=== PATIENT | male | born 1940 | race Caucasian/White ===

== ENCOUNTER → 2019-11-24 08:00 | Outpatient (BNVA) | payer MEDICARE, OTHER, SELFPAY | PROVIDERS: Family Provider Family Medicine; PCP Family Medicine; Referring Provider Family Medicine; Visit Provider Family Medicine | DX: Z00.00 Encounter for general adult medical examination without abnormal findings (principal); I10 Essential (primary) hypertension; Z85.46 Personal history of malignant neoplasm of prostate; E11.9 Type 2 diabetes mellitus without complications; N52.9 Male erectile dysfunction, unspecified | CPT/HCPCS: 80048; 83036; G0103 ==

== ENCOUNTER → 2020-05-05 11:58 | Outpatient (BNVA) | payer MEDICARE, OTHER, SELFPAY | PROVIDERS: Family Provider Family Medicine; PCP Family Medicine; Visit Provider Family Medicine | DX: E11.9 Type 2 diabetes mellitus without complications (principal); N10 Acute pyelonephritis | CPT/HCPCS: 36416; 80053; 81000; 82962; 83036; 85025; 87086 ==

== ENCOUNTER 2020-05-22 18:52 | Emergency (ER) | payer MEDICARE, OTHER, SELFPAY ==
--- NOTE | 2020-05-22 18:52 | XRR_ITS ---
PROCEDURE INFORMATION: Exam: XR Abdomen, 1 View Exam date and time: 05/22/2020 6:53 PM Age: 79 years old Clinical indication: Symptoms: Constipation x 2; Prior surgery TECHNIQUE: Imaging protocol: XR of the abdomen. Views: Frontal supine view of the abdomen. 1 View. COMPARISON: CR XR KUB [id number] 08/31/2016 8:33 AM FINDINGS: Gastrointestinal tract: Bowel gas pattern is unremarkable. There is a large amount of feces within the rectal region suggesting possible fecal impaction. Correlation with clinical findings is suggested. Intraperitoneal space: There are postsurgical changes in the pelvis with multiple surgical clips not changed from previous. Bones/joints: Unremarkable. Soft tissues: No urinary tract calculi are identified. XR/XR KUB [id number] IMPRESSION: Possible fecal impaction.
[2020-05-22 19:07] VITALS: BP 137/81; PULSE 103; RESP 18; TEMP 36.8; O2SAT 97; BMI 26.2
[2020-05-22 19:31] VITALS: BP 135/86; PULSE 102; RESP 18; O2SAT 96
[2020-05-22 20:03] LABS: Basophils # 0.1 10^3/uL (0.0-0.1); Basophils % 0.8 %; Eosinophils # 0.1 10^3/uL (0.0-0.8); Eosinophils % 0.8 %; Hematocrit 37.6 % (42.0-52.0); Lymphocytes % 45.2 %; Mean Corpuscular HGB Conc 31.9 g/dL (30.0-36.0); Mean Corpuscular Hemoglobin 32.2 pg (28.0-34.0); Mean Corpuscular Volume 100.8 fL (80-94); Mean Platelet Volume 10.3 fL (7.4-10.4); Monocytes # 0.6 10^3/uL (0.2-0.9); Neutrophils # 2.86 10^3/uL (1.8-7.7); Neutrophils % 43.7 %; Nucleated Red Blood Cells % 0 %; Platelet Count 195 10^3/cmm (130-400); Red Blood Count 3.73 10^6/uL (4.1-5.3); Red Cell Distribution Width 13.2 % (12.1-15.1); White Blood Count 6.5 10^3/uL (4.0-10.0)
[2020-05-22 20:25] LABS: Alanine Aminotransferase 17 U/L (0-41); Albumin Level 3.4 g/dL (3.5-5.2); Alkaline Phosphatase 56 IU/L (40-130); Anion Gap 16.4 (5-19); Aspartate Amino Transferase 12 U/L (0-40); Blood Urea Nitrogen 22 mg/dL (8-23); Calcium 9.1 mg/dL (8.5-10.5); Carbon Dioxide 20 mmol/L (22-29); Chloride 106 mmol/L (98-107); Globulin 3.4 g/dL (1.3-4.6); Glucose 207 mg/dL (65-115); Osmolality Calculated 289 mOsm/kg (285-295); Potassium 4.4 mmol/L (3.5-5.1); Sodium 138 mmol/L (136-145); Total Bilirubin 0.3 mg/dL (0.15-1.2); Total Protein 6.8 g/dL (6.6-8.7)
[2020-05-22] MEDS: mineral oil ENEMA 133 mL PR (21:27)
--- NOTE | 2020-05-22 21:27 | PC.NURSE ---
Pt produced a large stool at this time.
[2020-05-22 22:00] VITALS: BP 100/71; PULSE 106; RESP 18; O2SAT 97
--- NOTE | 2020-05-22 23:10 | W.ED.ABDPA2 ---
HPI - Abdominal Pain General: Chief Complaint: Abdominal Pain Stated Complaint: constipated Time Seen by Provider: 05/22/20 19:20 History of Present Illness: HPI narrative: 79-year-old male he presents with a feeling of bloating, and mild belly pain. He feels like he needs to have a bowel movement, but cannot. He says he has the urge but cannot seem to complete. He feels it in his vault. No vomiting. No encopresis. No fever. He is tried MiraLAX at home. MD elicited complaint: abdominal pain Pertinent past history: constipation Onset (ago): day(s) Pain Consistency: constant Location: Diffuse Severity: mild Quality: aching Radiation: none Migration to: no migration Relieving factors: nothing Associated Symptoms: Reports bloating and constipation; Denies belching, diarrhea, dysuria, fever(s), hematuria, hematemesis and vomiting Review of Systems Const: Denies: fever(s) Eyes: Denies: change in vision ENMT: Denies: swelling of lips/tongue, bleeding gums, dental pain, change in hearing, epistaxis, post nasal drip or sinus pain Card: Denies: chest pain, palpitations or irregular heart rhythm Resp: Denies: dyspnea, productive cough, non-productive cough or wheezing GI: Reports: constipation and bloating; Denies: vomiting, hematemesis, diarrhea or belching : Denies: difficulty urinating, dysuria or hematuria Skin/Breast: Denies: rash Neuro: Denies: headache(s), dizziness or vertigo Psych: Denies: anxiety PFSH ED PFSH: Medical History Diabetes Hypertension Surgical History History of prostate surgery Social History Smoking and tobacco status: former smoker Alcohol intake: never Physical Exam Const: GENERAL APPEARANCE: well developed ORIENTATION/CONSCIOUSNESS: Yes oriented to person, Yes oriented to place and Yes oriented to time HENMT: COMMON NORMALS: normocephalic, external ears normal and Normal external nose present HEAD & SCALP: normocephalic FACE & SINUS: normal facial exam NOSE: Normal external nose present and No nasal discharge present EXTERNAL EAR: Yes external ears normal MOUTH: tongue normal Eye: COMMON NORMALS: Equal, round and reactive pupils present, EOMs intact bilaterally and conjunctivae normal EYELID: eyelids normal CONJUNCTIVA: Yes conjunctivae normal PUPIL: Yes Equal, round and reactive pupils present Neck/C-Spine: GENERAL: No tracheal deviation Chest: COMMONS NORMALS: normal inspection of the chest CHEST: No tenderness Resp: COMMON NORMALS: clear to auscultation bilaterally EFFORT & INSPECTION: No tachypneic, No respiratory distress, No retractions, No uses accessory muscles and No tracheal deviation AUSCULTATION: clear to auscultation bilaterally, no rhonchi, no wheezes and lung sounds not diminished Cardio: COMMON NORMALS: regular rate and regular rhythm RATE: regular rate RHYTHM: regular rhythm HEART SOUNDS: no murmurs PERIPHERAL PULSES: radial pulses present GI: INSPECTION: No abdominal distension AUSCULTATION: No Hyperactive bowel sounds present and No Hypoactive bowel sounds present PALPATION: No Guarding due to palpation present (GI) and No Rigid due to palpation PERCUSSION: no dullness to percussion and no tympanic to percussion Neuro: SENSORIUM/ORIENTATION: Yes oriented to person, Yes oriented to place and Yes oriented to time Psych: COMMON NORMALS: mental status grossly normal Skin: COMMON NORMALS: no rashes or lesions noted GENERAL SKIN EXAM: no rashes or lesions noted Course Vital Signs: Vital signs: Vital Signs Temperature 98.2 F 05/22/20 19:07 Pulse Rate 106 H 05/22/20 22:00 Respiratory Rate 18 05/22/20 22:00 Blood Pressure 100/71 05/22/20 22:00 Pulse Oximetry 97 05/22/20 22:00 MDM - Abdominal Pain MDM Narrative: Medical decision making narrative: Patient was given a Fleet and mineral oil enema here in the ER with good results. He feels much better. He will be discharged home. He will continue his MiraLAX Lab Data: Labs: Lab Results 05/22/20 05/22/20 Range/Units 19:58 19:58 WBC 6.5 (4.0-10.0) 10^3/ uL RBC 3.73 L (4.1-5.3) 10^6/u L Hgb 12.0 (11.7-16.6) g/dL Hct 37.6 L (42.0-52.0) % MCV 100.8 H (80-94) fL MCH 32.2 (28.0-34.0) pg MCHC 31.9 (30.0-36.0) g/dL RDW 13.2 (12.1-15.1) % Plt Count 195 (130-400) 10^3/c mm MPV 10.3 (7.4-10.4) fL Neut % (Auto) 43.7 % Lymph % (Auto) 45.2 % [place] % (Auto) 9.0 % Eos % (Auto) 0.8 % Baso % (Auto) 0.8 % Neut # (Auto) 2.86 (1.8-7.7) 10^3/u L Lymph # (Auto) 3.0 (0.8-4.8) 10^3/u L [place] # (Auto) 0.6 (0.2-0.9) 10^3/u L Eos # (Auto) 0.1 (0.0-0.8) 10^3/u L Baso # (Auto) 0.1 (0.0-0.1) 10^3/u L Nucleated RBC % (a uto) 0 % Nucleated RBCs # 0.0 /100WBC Sodium 138 (136-145) mmol/L Potassium 4.4 (3.5-5.1) mmol/L Chloride 106 (98-107) mmol/L Carbon Dioxide 20 L (22-29) mmol/L Anion Gap 16.4 (5-19) BUN 22 (8-23) mg/dL Creatinine 1.2 (0.7-1.2) mg/dL Glucose 207 H (65-115) mg/dL Calculated Osmolal ity 289 (285-295) mOsm/k g Calcium 9.1 (8.5-10.5) mg/dL Total Bilirubin 0.3 (0.15-1.2) mg/dL AST 12 (0-40) U/L ALT 17 (0-41) U/L Alkaline Phosphata se 56 (40-130) IU/L Total Protein 6.8 (6.6-8.7) g/dL Albumin 3.4 L (3.5-5.2) g/dL Globulin 3.4 (1.3-4.6) g/dL Discharge Plan Discharge Patient Disposition: Home, Self-Care Condition: Stable Prescriptions: No Action dorzolamide-timolol [Cosopt] 22.3-6.8 mg/mL drops 1 drop ophthalmic (eye) BID RF: 0 lisinopril 5 mg tablet 5 mg PO ONCE RF: 0 Januvia 100 mg tablet 100 mg PO ONCE RF: 0 sildenafil [Viagra] 100 mg tablet 100 mg PO DAILY PRN (Reason: sexual activity) Qty: 10 RF: 0 ciprofloxacin HCl [Cipro] 500 mg tablet 500 mg PO BID Qty: 14 RF: 0 glipizide 5 mg tablet 5 mg PO DAILY Qty: 30 RF: 1 metformin 500 mg tablet 500 mg PO BID Qty: 180 RF: 3 Discharge Orders: Discharge Order (Routine); Ordered 05/22/20 Ordered By: Arie Quach Referrals: Param Goodwin MD [Primary Care Provider] - 4-7 days Discharge Diet: Advance as tolerated Discharge Activity: Increase activity as tolerated Patient Instructions: Constipation (ED) Activity Restrictions/Additional Instructions: Continue your MiraLAX twice daily until stools are good and soft. As needed following. Return for any fever, worsening belly pain, blood in the stool, other concerning symptoms. Discharge Date/Time: 05/22/20 22:03 Coding Level of Care Code ED [employer] Lab Technician for Oscar Hernadez
== END 2020-05-22 22:03 | disposition home or self-care (01) ==
PROVIDERS: Emergency Provider Emergency Medicine; PCP Family Medicine
DX: K59.00 Constipation, unspecified (principal); E11.9 Type 2 diabetes mellitus without complications; I10 Essential (primary) hypertension; Z87.891 Personal history of nicotine dependence
CPT/HCPCS: 12345; 74018; 80053; 85025; 99282; 99283

== ENCOUNTER → 2021-04-18 10:06 | Outpatient (BNVA) | payer MEDICARE, SELFPAY | PROVIDERS: PCP Family Medicine; Visit Provider Family Medicine | DX: E11.9 Type 2 diabetes mellitus without complications (principal); I10 Essential (primary) hypertension; Z98.890 Other specified postprocedural states; M72.0 Palmar fascial fibromatosis [Dupuytren] | CPT/HCPCS: 80053; 83036; 85025; G0103 ==

== ENCOUNTER → 2022-06-12 10:14 | Outpatient (BNVA) | payer MEDICARE, SELFPAY | PROVIDERS: PCP Family Medicine; Visit Provider Family Medicine | DX: E11.9 Type 2 diabetes mellitus without complications (principal); Z00.00 Encounter for general adult medical examination without abnormal findings; I10 Essential (primary) hypertension; L82.1 Other seborrheic keratosis | CPT/HCPCS: 80053; 83036 ==

== ENCOUNTER → 2022-10-20 12:37 | Outpatient (BNVA) | payer MEDICARE, SELFPAY | PROVIDERS: PCP Family Medicine; Visit Provider Family Medicine | DX: L01.02 Bockhart's impetigo (principal) | CPT/HCPCS: 87070; 87077; 87184; 87205 ==

== ENCOUNTER → 2023-05-07 10:54 | Outpatient (BNVA) | payer MEDICARE, SELFPAY | PROVIDERS: PCP Family Medicine; Visit Provider Family Medicine | DX: E11.9 Type 2 diabetes mellitus without complications (principal); I10 Essential (primary) hypertension | CPT/HCPCS: 80053; 83036; 85025 ==

== ENCOUNTER → 2023-09-11 12:17 | Outpatient (BNVA) | payer MEDICARE, SELFPAY | PROVIDERS: PCP Family Medicine; Visit Provider Family Medicine | DX: E11.9 Type 2 diabetes mellitus without complications (principal) | CPT/HCPCS: 80053; 83036; 85025 ==

== ENCOUNTER → 2023-09-17 13:44 | Outpatient (BNVA) | payer MEDICARE, SELFPAY | PROVIDERS: PCP Family Medicine; Visit Provider Otolaryngology | DX: C44.211 Basal cell carcinoma of skin of unspecified ear and external auricular canal (principal) | CPT/HCPCS: 99203 ==

== ENCOUNTER → 2023-10-02 13:17 | Outpatient (BNVA) | payer MEDICARE, SELFPAY | PROVIDERS: PCP Family Medicine; Referring Provider Family Medicine; Visit Provider Dermatology | DX: L82.1 Other seborrheic keratosis (principal); L57.0 Actinic keratosis; D48.5 Neoplasm of uncertain behavior of skin; L81.4 Other melanin hyperpigmentation; D69.2 Other nonthrombocytopenic purpura | CPT/HCPCS: 11102; 17000; 69100; 99203 ==

== ENCOUNTER 2023-10-25 12:55 | Outpatient (CLI) | payer MEDICARE, SELFPAY ==
--- NOTE | 2023-10-25 14:00 | CT_ITS ---
WS: [id number] CT scan of the abdomen and pelvis with Oral and IV contrast. Additional two-dimensional coronal and s agittal reconstruction was performed. 10/25/2023 Clinical Data: progressive discomfort abnormal bowel act/constip x 12 d Comparison: CT abdomen pelvis, 04/13/2010 DLP: 745.[address] scans at [facility] use at least one of these dose optimization techniques: automated e xposure control; mA and/or kV adjustment per patient size (includes targeted exams where dose is matc hed to clinical indication); or iterative reconstruction. Findings: The lower lungs show no nodules, masses or effusions. The liver, spleen, adrenal glands and pancreas are normal. There are numerous gallstones in the gallb ladder. The kidneys show equal bilateral contrast excretion with no cyst or masses in the right kidney. The l eft kidney shows a 5.9 cm simple cyst. There is also a central 1.2 cm renal calculus with dilatation of the left renal pelvis and proximal left ureter. No distinct left ureteral stone is seen. There is a small inferior left renal calculus. The abdominal aorta is normal in size. No appendicitis or diverticulitis is seen. Oral contrast is in the stomach and small bowel and there is no bowel dilatation. No abscess, adenopathy, ascites, mass, obstruction or free air is seen. The bladder is unremarkable. The prostate has been removed. No inguinal hernia is seen. The bones of the lower thorax, lumbar spine, pelvis, and hips show only minimal osteoarthritis of the lower thoracic and lumbar vertebral bodies. Impression: 1. Central 1.2 cm left renal calculus with dilatation of the left renal pelvis and proximal left uret er. 2. Cholelithiasis.
[2023-10-25] MEDS: iohexol 350 mg/mL 500 mL Btl (per mL) IV (14:12)
[2023-10-25] MEDS: iohexol 350 mg/mL 500 mL Btl (per mL) PO (14:19)
== END 2023-10-25 12:56 | disposition home or self-care (01) ==
LOC: RAD 12:56
PROVIDERS: PCP Family Medicine; Visit Provider Family Medicine
DX: K56.600 Partial intestinal obstruction, unspecified as to cause (principal); N20.0 Calculus of kidney; K59.00 Constipation, unspecified; K80.20 Calculus of gallbladder without cholecystitis without obstruction; N28.82 Megaloureter
CPT/HCPCS: 74177; Q9967

== ENCOUNTER → 2023-11-13 08:02 | Outpatient (BNVA) | payer MEDICARE, SELFPAY | PROVIDERS: PCP Family Medicine; Visit Provider Dermatology | DX: C44.319 Basal cell carcinoma of skin of other parts of face (principal); C44.212 Basal cell carcinoma of skin of right ear and external auricular canal | CPT/HCPCS: 13132; 15260; 17311 ==

== ENCOUNTER → 2023-11-23 08:14 | Outpatient (BNVA) | payer MEDICARE, SELFPAY | PROVIDERS: PCP Family Medicine; Visit Provider Dermatology | DX: Z48.02 Encounter for removal of sutures (principal) | CPT/HCPCS: 99212 ==

== ENCOUNTER → 2023-12-11 13:39 | Outpatient (BNVA) | payer MEDICARE, SELFPAY | PROVIDERS: PCP Family Medicine; Visit Provider Dermatology | DX: Z48.817 Encounter for surgical aftercare following surgery on the skin and subcutaneous tissue (principal); L57.0 Actinic keratosis; L81.4 Other melanin hyperpigmentation; L82.1 Other seborrheic keratosis; D36.11 Benign neoplasm of peripheral nerves and autonomic nervous system of face, head, and neck; L72.0 Epidermal cyst | CPT/HCPCS: 17000; 99213 ==

== ENCOUNTER → 2024-04-30 12:39 | Outpatient (BNVA) | payer MEDICARE, SELFPAY | PROVIDERS: PCP Family Medicine; Visit Provider Family Medicine | DX: I10 Essential (primary) hypertension (principal); E11.9 Type 2 diabetes mellitus without complications; R79.89 Other specified abnormal findings of blood chemistry; C44.212 Basal cell carcinoma of skin of right ear and external auricular canal; N20.0 Calculus of kidney | CPT/HCPCS: 80053; 82310; 83036; 83970; 84403; 85025 ==

== ENCOUNTER → 2024-10-14 13:26 | Outpatient (BNVA) | payer MEDICARE, SELFPAY | PROVIDERS: PCP Family Medicine; Visit Provider Dermatology | DX: L82.1 Other seborrheic keratosis (principal); D36.14 Benign neoplasm of peripheral nerves and autonomic nervous system of thorax; L72.0 Epidermal cyst; D22.5 Melanocytic nevi of trunk; D48.5 Neoplasm of uncertain behavior of skin; L57.0 Actinic keratosis | CPT/HCPCS: 11102; 17000; 99213 ==

== ENCOUNTER → 2024-10-20 10:45 | Outpatient (BNVA) | payer MEDICARE, SELFPAY | PROVIDERS: PCP Family Medicine; Visit Provider Family Medicine | DX: Z98.890 Other specified postprocedural states (principal); Z85.46 Personal history of malignant neoplasm of prostate; Z87.442 Personal history of urinary calculi; E11.9 Type 2 diabetes mellitus without complications; N20.0 Calculus of kidney; Z12.5 Encounter for screening for malignant neoplasm of prostate | CPT/HCPCS: 80053; 82310; 83036; 83970; G0103 ==

== ENCOUNTER → 2024-11-19 08:41 | Outpatient (BNVA) | payer MEDICARE, SELFPAY | PROVIDERS: PCP Family Medicine; Visit Provider Dermatology | DX: C44.319 Basal cell carcinoma of skin of other parts of face (principal) | CPT/HCPCS: 14041; 17311 ==

== ENCOUNTER → 2025-02-19 09:52 | Outpatient (BNVA) | payer MEDICARE, SELFPAY | PROVIDERS: PCP Family Medicine; Visit Provider Nurse Practitioner Family | DX: L57.8 Other skin changes due to chronic exposure to nonionizing radiation (principal); L81.4 Other melanin hyperpigmentation; L21.8 Other seborrheic dermatitis; B07.8 Other viral warts; L29.89 Other pruritus | CPT/HCPCS: 17000; 99213 ==

== ENCOUNTER → 2025-04-14 11:08 | Outpatient (BNVA) | payer MEDICARE, SELFPAY | PROVIDERS: PCP Family Medicine; Visit Provider Nurse Practitioner Family | DX: L82.1 Other seborrheic keratosis (principal); L72.0 Epidermal cyst; Z08 Encounter for follow-up examination after completed treatment for malignant neoplasm; Z85.828 Personal history of other malignant neoplasm of skin; L57.0 Actinic keratosis | CPT/HCPCS: 17000; 99213 ==

== ENCOUNTER → 2025-05-04 10:34 | Outpatient (BNVA) | payer MEDICARE, SELFPAY | PROVIDERS: PCP Family Medicine; Visit Provider Family Medicine | DX: E11.9 Type 2 diabetes mellitus without complications (principal); I10 Essential (primary) hypertension | CPT/HCPCS: 80053; 83036; 85025 ==

== ENCOUNTER → 2025-05-13 09:22 | Outpatient (BNVA) | payer MEDICARE, SELFPAY | PROVIDERS: PCP Family Medicine; Visit Provider Family Medicine | DX: D70.9 Neutropenia, unspecified (principal) | CPT/HCPCS: 85007; 85027 ==

== ENCOUNTER → 2025-05-19 08:54 | Outpatient (BNVA) | payer MEDICARE, SELFPAY | PROVIDERS: PCP Family Medicine; Visit Provider Family Medicine | DX: D70.9 Neutropenia, unspecified (principal) | CPT/HCPCS: 80053; 83615; 85025 ==

== ENCOUNTER 2025-05-29 13:26 | Observation (INO) | payer MEDICARE, SELFPAY ==
--- OUTSIDE RECORDS SUMMARY | 2025-05-29 13:33 | XMS_ITS | Patient Health Record ---
Author Organization [facility] [email or web address] Address [address] [facility] [place] [address] Care Team Providers Care Psychology Clinician Name Role Phone Param Goodwin Primary Care Provider MARGARITO Jackman Unavailable [phone] ARIEL KEANE Unavailable [phone] Allergies No Known Allergies Results Component Value Reference Range Notes Urinalysis, Routine Reviewed date:08/28/2024 10:34:27 AM Interpretation: Performing Lab: Notes/Report: Urine-Color yellow Appearance clear Glucose 1+ Bilirubin - Ketones - Specific [place] 1.020 Occult Blood - pH 6.0 Urine Protein - Urobilinogen,Semi-Qn - Nitrite, Urine - WBC Esterase - Urinalysis, Routine Reviewed date:10/31/2024 10:56:32 AM Interpretation: Performing Lab: Notes/Report: Urine-Color yellow Appearance clear Glucose 3+ Bilirubin - Ketones - Specific [place] 1.025 Occult Blood - pH 6.0 Urine Protein - Urobilinogen,Semi-Qn - Nitrite, Urine - WBC Esterase - Urinalysis Gross Exam - Uric Acid Reviewed date:07/11/2024 10:47:18 AM Interpretation: Performing Lab: Notes/Report: Uric Acid 8.3 3.5-7.2 MG/DL Testing perfor med at: [address] [place] [address] CLIA ID [id number] PTH Intact Reviewed date:07/11/2024 10:47:26 AM Interpretation: Performing Lab: Notes/Report: PTH Intact 127.4 18.4-88.0 pg/mL Performed on the Siemens AtellQello Solution IM Testing performed at: [address] [place] [address] CLIA ID [id number] Basic Metabolic Panel Reviewed date:07/11/2024 10:47:18 AM Interpretation: Performing Lab: Notes/Report: Testing performed at [facility], [address] [place] [address] [place] [address]. CLIA ID#: [id number] R-bhqymm-e-benzoquinone imine (NAPQI) is a metabolite of acetaminophen, NAPQI concentrations of apparoximately 10 mg/L correlation to toxic levels of acetaminophen demonstrates a greater than or equil to 10% change in results. NAPQI concentrations greater than this may lead to falsely depressed results for patient samples. Calculation performed from GFR calculator provided by the [employer]. Glomerular Filtration rate(GRF) is the best overall index of kidney function. Normal GFR varies according to age,sex, body size, and declines with age. The National [employer] recommends using the CKD-EPI Creatinine Equation(2020) to estimate GFR. Testing performed at: [address] [place] [address] CLIA ID [id number] Use of this assay is not recommended for patients undergoing treatment with phenindione, due to the potential for falsely depressed results. Sodium 140 136-145 MMOL/L Potassium 5.0 3.5-5.1 MMOL/L Chloride 110 98-107 MMOL/L CO2 23.0 20.0-31.0 MMOL/L Glucose Serum 147 71-110 MG/DL BUN 25 7-21 MG/DL Creat 1.25 .57-1.17 MG/DL GFR 56.3 Anion Gap 12 5-15 BUN/Creat Ratio 20.0 12.0-20.0 % Calcium 9.3 8.7-10.4 MG/DL Osmo Serum,Calculated 297 280-300 MOSM/KG Reason For Referral No Information Medications Medication SIG (Take, Route, Frequency, Duration) Notes Start Date End Date Status Januvia taking half dose Act nicole Latanoprost Active Dorzolamide HCl Acti ve glipiZIDE Active Lisinopril Active Potassium Citrate ER 10 MEQ (1080 MG) 2 tablets with meals Orally twice a day for 30 days 08/28/2024 Active metFORMIN HCl Active Social History Tobacco Use: Social History Observation Description Date Details (start date - stop date) Former Smoker NA - NA Tobacco Use/Smoking Question Answer Notes Tobacco use: former smoker How long has it been since you last smoked? > 10 years Problems Problem Type SNOMED Code ICD Code Onset Dates Problem Status W/U Status Risk Notes Problem Calculus of kidney (00188228) Calculus of kidney (N20.0) Active confirmed Problem Asymptomatic microscopic hematuria (8168905737443678 9) Asymptomatic microscopic hematuria (R31.21) Active confirmed Problem Hydroureter (73343760) Hydroureter on left (N13.4) Active confirmed Problem 70544006 Nephrolithiasis (N20.0) Active confirmed Problem Male hypogonadism (84844435) Hypogonadism in male (E29.1) Active confirmed Problem Hydronephrosis (26194946) Hydronephrosis of left kidney (N13.30) Active confirmed Problem History of malignant neoplasm of prostate (060332577) H/O prostate cancer (Z85.46) Active confirmed Problem 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, acquired, 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) Active confirmed Vital Signs Heart Rate 76 /min 08/28/2024 Temperature 97.9 degrees Fahrenheit 10/31/2024 Height-cm 177.8 cm 10/31/2024 Blood pressure diastolic 59 mm Hg 08/28/2024 Weight-kg 84.82 kg 10/31/2024 Height 70 in 10/31/2024 Blood pressure systolic 102 mm Hg 08/28/2024 Weight 187 lbs 10/31/2024 BMI 26.83 kg/m2 10/31/2024 Procedures Procedure Date Ordered Date Performed Result Body Sit e Bladder Scan 10/31/2024 10/31/2024 N/A Encounters Encounter Location Date Provider Diagnosis [email or web address] [address] [facility] [place] [address] 08/28/2024 MARGARITO CHAMBERS Nephrolithiasis N20. 0 ; Renal cyst, acquired, left N28.1 ; Asymptomatic microscopic hematuria R31.21 ; Hypogonadism in male E29.1 and H/O prostate cancer Z85.46 [facility] [address] [facility] [place] [address] 10/31/2024 ARIEL KEANE Nephrolithiasis N20. 0 ; Renal cyst, acquired, left N28.1 ; Asymptomatic microscopic hematuria R31.21 ; Hypogonadism in male E29.1 ; H/O prostate cancer Z85.46 and Encounter for follow-up examination after completed treatment for malignant neoplasm Z08 [facility], [facility] [address] [facility] [place] [address] 06/30/2024 MARGARITO KARIS [facility] [address] [facility] [place] [address] 06/30/2024 MARGARITO CHAMBERS [facility], [facility] [address] [facility] [place] [address] 07/03/2024 MARGARITO CHAMBERS H/O prostate cancer Z85.46 [facility] [address] [facility] [place] [address] 09/04/2024 MARGARITO CHAMBERS Assessments Encounter Date Diagnosis (ICD Code) Assessment Notes Treatment Notes Treatment Clinical Notes Section Notes 07/03/2024 H/O prostate cancer (ICD-10 - Z85.46) 10/31/2024 Nephrolithiasis (ICD-10 - N20.0) Pt without interval flank pain or stone passage. He had hyperkalemia with potassium citrate even at 10mEq daily dosing. Discontinue and start dietary citrate. Continue diet prevention as previously reviewed by Dr. Chambers. He does not want surveillance KUBs because his stones are uric acid and he wants to just notify us with any flank pain or hematuria. 10/31/2024 Renal cyst, acquired, left (ICD-10 - N28.1) 08/28/2024 Nephrolithiasis (ICD-10 - N20.0) 84 yo male with L renal cyst, bilateral renal stones and AMH. [employer]Link reviewed during consult. Stone preventive pamphlet given today. Potassium citrate 20mg BID daily, Rx sent today. Pt and pleased with plan of care. He will return in 2m with Forest Oshea APRN with BMP, UA/PVR. Return sooner with any concerns. Plan: -Stone preventive pamphlet given today - Rx Potassium citrate 20mg BID daily -RTC in 2 months with BMP,UA/PVR and see Liz Keane APRN I, Stormy Kapelski, Scribe, am scribing for, and in the presence of, Dr. Chambers. I, Dr. Margarito Chambers, personally performed the services prescribed in this documentation , as scribed by Angelique Pierre, in my presence, and it is both accurate and complete. 08/28/2024 Renal cyst, acquired, left (ICD-10 - N28.1) 84 yo male with L renal cyst, bilateral renal stones and AMH. [employer]oLink reviewed during consult. Stone preventive pamphlet given today. Potassium citrate 20mg BID daily, Rx sent today. Pt and pleased with plan of care. He will return in 2m with Forest Oshea APRN with BMP, UA/PVR. Return sooner with any concerns. Plan: -Stone preventive pamphlet given today - Rx Potassium citrate 20mg BID daily -RTC in 2 months with BMP,UA/PVR and see Liz Keane APRN I, Stormy Kapelski, Bart, am scribing for, and in the presence of, Dr. Chambers. I, Dr. Margarito Chambers, personally performed the services prescribed in this documentation , as scribed by Angelique Pierre, in my presence, and it is both accurate and complete. 10/31/2024 Asymptomatic microscopic hematuria (ICD-10 - R31.21) 10/31/2024 Hypogonadism in male (ICD-10 - E29.1) 08/28/2024 Asymptomatic microscopic hematuria (ICD-10 - R31.21) 84 yo male with L renal cyst, bilateral renal stones and AMH. [employer]oLink reviewed during consult. Stone preventive pamphlet given today. Potassium citrate 20mg BID daily, Rx sent today. Pt and pleased with plan of care. He will return in 2m with Forest Oshea APRN with BMP, UA/PVR. Return sooner with any concerns. Plan: -Stone preventive pamphlet given today - Rx Potassium citrate 20mg BID daily -RTC in 2 months with BMP,UA/PVR and see Liz Keane APRN I, Stormy Kapelski, Scribe, am scribing for, and in the presence of, Dr. Chambers. Angel Luis, Dr. Margarito Chambers, personally performed the services prescribed in this documentation , as scribed by Angelique Pierre, in my presence, and it is both accurate and complete. 08/28/2024 Hypogonadism in male (ICD-10 - E29.1) 84 yo male with L renal cyst, bilateral renal stones and AMH. [employer] reviewed during consult. Stone preventive pamphlet given today. Potassium citrate 20mg BID daily, Rx sent today. Pt and pleased with plan of care. He will return in 2m with Forest Oshea APRN with BMP, UA/PVR. Return sooner with any concerns. Plan: -Stone preventive pamphlet given today - Rx Potassium citrate 20mg BID daily -RTC in 2 months with BMP,UA/PVR and see Liz Keane APRN I, Stormy Kapelski, Scribe am scribing for, and in the presence of, Dr. Chambers. I, Dr. Margarito Chambers, personally performed the services prescribed in this documentation , as scribed by Angelique Pierre, in my presence, and it is both accurate and complete. 10/31/2024 H/O prostate cancer (ICD-10 - Z85.46) Pt's PSA is undetectable. He would like to continue yearly surveillance. RTC in 1 year with PSA. 10/31/2024 Encounter for follow-up examination after completed treatment for malignant neoplasm (ICD-10 - Z08) 08/28/2024 H/O prostate cancer (ICD-10 - Z85.46) 84 yo male with L renal cyst, bilateral renal stones and AMH. [employer] reviewed during consult. Stone preventive pamphlet given today. Potassium citrate 20mg BID daily, Rx sent today. Pt and pleased with plan of care. He will return in 2m with Forest Oshea APRN with BMP, UA/PVR. Return sooner with any concerns. Plan: -Stone preventive pamphlet given today - Rx Potassium citrate 20mg BID daily -RTC in 2 months with BMP,UA/PVR and see Liz Keane APRN I, Stormy Kapelski, Scribe am scribing for, and in the presence of, Dr. Chambers. I, Dr. Margarito Chambers, personally performed the services prescribed in this documentation , as scribed by Angelique Pierre, in my presence, and it is both accurate and complete. Plan Of Treatment Pending Test Test Name Order Date Uric Acid, Serum 02/11/2024 PTH, Intact 02/11/2024 Basic Metabolic Panel (8) [id number] 02/11/20 24 X ray : Kidneys, Ureters and Bladder ([facility] B) 12/20/2023 Renal Ultrasound MARIO [id number] 12/20/2023 Basic Metabolic Panel 08/28/2024 PSA-Diagnostic 07/03/2024 Next Appt Details Provider Name:ARIEL DEE NS, 11/02/2025 10:40:00 AM, [address] [place], [address], Insurance Providers Payer Name Payer Address Payer Phone Subscriber Number Group Number Insured Name Patient Relationship to Insured Coverage Start Date Coverage End Date [facility] Medicare Advantage PPO [address] [address] [place], [place] [id number] Alex Navas Self - patient is the insured Medical (General) History Medical History History ICD Code Diabetes Prostat Cancer Skin Cancer glaucoma kidney stones Surgical History Surgery Date(Month/Year) Prostatectomy R Hand surgery L eye surgery lithotripsy 12/04/23 Hospitalization History Reason Date(Month/Year) see surgery
[2025-05-29 13:34] VITALS: BP 129/72; PULSE 90; RESP 18; TEMP 36.6; O2SAT 96; BMI 26.5
--- NOTE | 2025-05-29 15:19 | CTR_ITS ---
PROCEDURE INFORMATION: Exam: CTA Chest With Contrast Exam date and time: 05/29/2025 4:18 PM Age: 85 years old Clinical indication: Abdominal pain; Generalized; Chest pressure and sternal or substernal pain; Prior surgery; Surgery date: 6+ months; Prostate cancer; Additional info: Chest pain, dyspepsia/dysphagia, new abdominal ascites TECHNIQUE: Imaging protocol: Computed tomographic angiography of the chest with contrast. Exam focused on the arteries. 3D rendering (Not supervised by radiologist): MIP and/or 3D reconstructed images were created by the technologist. Radiation optimization: All CT scans at this facility use at least one of these dose optimization techniques: automated exposure control; mA and/or kV adjustment per patient size (includes targeted exams where dose is matched to clinical indication); or iterative reconstruction. Contrast material: OMNIPAQUE 350; Contrast volume: 100 ml; Contrast route: INTRAVENOUS (IV); COMPARISON: CR XR chest 1V portable [id number] 05/29/2025 3:24 PM RADIATION DOSE METRICS: Total DLP (mGy-cm): 1089.49 FINDINGS: Pulmonary arteries: Normal. No pulmonary emboli. Aorta: Unremarkable. No aortic aneurysm. No aortic dissection. Lungs: Unremarkable. No consolidation. No masses. Pleural spaces: Small bilateral pleural effusions are noted. Heart: Unremarkable. No cardiomegaly. No pericardial effusion. Lymph nodes: Unremarkable. No enlarged lymph nodes. Bones/joints: Unremarkable. No acute fracture. Soft tissues: Unremarkable. PROCEDURE INFORMATION: Exam: CT Abdomen And Pelvis With Contrast Exam date and time: 05/29/2025 4:18 PM Age: 85 years old Clinical indication: Abdominal pain; Generalized; Chest pressure and sternal or substernal pain; Prior surgery; Surgery date: 6+ months; Prostate cancer; Additional info: Chest pain, dyspepsia/dysphagia, new abdominal ascites TECHNIQUE: Imaging protocol: Computed tomography of the abdomen and pelvis with contrast. Radiation optimization: All CT scans at this facility use at least one of these dose optimization techniques: automated exposure control; mA and/or kV adjustment per patient size (includes targeted exams where dose is matched to clinical indication); or iterative reconstruction. Contrast material: OMNIPAQUE 350; Contrast volume: 100 ml; Contrast route: INTRAVENOUS (IV); COMPARISON: CT abdomen pelvis w con* [id number] 10/25/2023 2:10 PM RADIATION DOSE METRICS: Total DLP (mGy-cm): 1089.49 FINDINGS: Lungs: Lung bases are clear. No pleural effusion. Liver: Normal. No mass. Gallbladder and biliary ducts: Normal. No calcified stones. No ductal dilation. Pancreas: Normal. No ductal dilation. Spleen: Normal. No splenomegaly. Adrenal glands: Normal. No mass. Kidneys and ureters: A 2.8 cm simple cyst involves the left kidney. Stomach and bowel: Unremarkable. No obstruction. No mucosal thickening. Appendix: No evidence of appendicitis. Intraperitoneal space: Severe abdominal ascites is noted. Vasculature: Unremarkable. No abdominal aortic aneurysm. Lymph nodes: Unremarkable. No enlarged lymph nodes. Urinary bladder: Unremarkable as visualized. Reproductive: The prostate has been surgically resected. Bones/joints: Unremarkable. No acute fracture. Soft tissues: Unremarkable. CT/CT angio chest w abd pel w con IMPRESSION: Small bilateral pleural effusions of uncertain etiology IMPRESSION: 1. Severe ascites of uncertain etiology. In the setting of previous prostate cancer you may consider occult diffuse peritoneal metastatic disease 2. A benign renal cyst or cysts have been detected. No further follow-up imaging is required. COMMENTS: Consistent with the [employer]'s Incidental Findings Committee white paper (J Am Javed Radiol 2018): Any incidental renal lesion less than 1 cm or classified as too small to characterize, or any incidental cystic renal lesion characterized as simple-appearing, is likely benign. No follow-up imaging is recommended for these lesions per consensus recommendations based on imaging criteria.
--- NOTE | 2025-05-29 15:19 | XR_ITS ---
WS: [id number] XR chest 1V portable [id number] REASON FOR EXAM: dyspepsia FINDINGS: Significant tortuosity and ectasia of the ascending and descending thoracic aorta. The ascending aorta may be mildly aneurysmally dilated Normal heart size. No acute pulmonary parenchymal or pleural disease. Mild degenerative spondylosis in the thoracic spine. XR/XR chest 1V portable [id number] IMPRESSION: The CT of the chest is been requested will further evaluate the thoracic aorta. No acute pulmonary parenchymal or pleural abnormality.
--- NOTE | 2025-05-29 15:21 | USCV_ITS ---
BoydAlex Age: 85 Gender: M : 1940 Exam Date: 05/29/2025 16:37 Ordering Phys: Titi Diego MD Technologist: [employer] Exam Location: [facility] [place]_ Indication: lef leg swelling HISTORY: Lower extremity swelling-left PROCEDURES: Venous duplex imaging was performed in only the left lower extremity. The following venous structures were evaluated: common femoral vein, profunda vein, proximal portion of the greater saphenous vein, superficial femoral vein, and the popliteal vein. In addition, the posterior tibial and peroneal trunk were evaluated. FINDINGS: No evidence of DVT seen in any vessel visualized at this time. CONCLUSIONS No evidence of left lower extremity DVT. Martin Robert MD (Electronically Signed) Final Date: 29 May 2025 17:00 S
[2025-05-29 15:38] LABS: Glucose Urine UA Trace (Normal); Nitrate Urine Negative (Negative); Specific Gravity, Urine 1.024 (1.005-1.030)
[2025-05-29 15:41] LABS: Add Urine Microscopic? YES
[2025-05-29 15:49] VITALS: BP 106/73; PULSE 93; O2SAT 97
[2025-05-29 16:14] LABS: Hematocrit 42.7 % (37-53); Hemoglobin 13.90 g/dL (11.27-16.99); Mean Corpuscular HGB Conc 32.6 g/dL (30-55); Mean Corpuscular Hemoglobin 29.7 pg (27-33); Mean Corpuscular Volume 91.2 fl (82-101); Nucleated Red Blood Cells % 0 %; Platelet Count 270 10^3/cmm (157-399); Red Blood Count 4.68 10^6/uL (3.85-5.65); White Blood Count 5.44 10^3/uL (3.29-11.43)
[2025-05-29] MEDS: iohexol 350 mg/mL 500 mL Btl (per mL) IV (16:19)
[2025-05-29 16:20] LABS: INR 1.03 (0.8-1.2); Prothrombin Time 14.20 SECONDS (12.1-14.9)
[2025-05-29 16:21] LABS: Partial Thromboplastin Time 30.7 SECONDS (23.9-36.7)
[2025-05-29 16:24] LABS: Alanine Aminotransferase 22 U/L (0-41); Albumin Level 3.4 g/dL (3.5-5.2); Alkaline Phosphatase 93 U/L (40-130); Anion Gap 18.3 (5-19); Aspartate Amino Transferase 17 U/L (0-40); Blood Urea Nitrogen 25 mg/dL (8-23); Calcium 9.0 mg/dL (8.5-10.5); Carbon Dioxide 21 mmol/L (22-29); Chloride 103 mmol/L (98-107); Creatinine Clr Calc Pharmacy 41.4461; Globulin 3.6 g/dL (1.3-4.6); Glucose 153 mg/dL (65-115); Lipase 40 U/L (13-60); Osmolality Calculated 293 mOsm/kg (285-295); Potassium 4.3 mmol/L (3.5-5.1); Sodium 138 mmol/L (136-145); Total Protein 7.0 g/dL (6.6-8.7)
--- NOTE | 2025-05-29 16:36 | PC.PHAR ---
Pt states he took medications last night and am meds today but threw up right after taking. Pt has started antibiotic Doxycycline 100mg Cap bid on 05/20/25 21ds
[2025-05-29] MEDS: ondansetron 2 mg/ML SDV 2 mL 4 MG IVP (18:56)
[2025-05-29 18:57] VITALS: BP 121/88; PULSE 93; RESP 17; O2SAT 97
[2025-05-29 21:00] LABS: Ketone (Acetest) Serum Negative (Negative)
--- NOTE | 2025-05-29 21:00 | PM.HP ---
Providers/Chief Complaint Primary Care Provider: Param Goodwin MD Chief Complaint: unable to keep things down, bloated abdomen History of Present Illness Alex Navas is a 85 year old gentleman with a history of diabetes mellitus, hypertension, glaucoma, prior prostate cancer, and recent neutropenia who presents to the emergency department with abdominal distention, nausea, vomiting, and heartburn. He reports two episodes of reddish-brown emesis today after eating ketchup. Earlier oncology evaluation (05/20/25) was notable for absolute neutrophil count of 0.8 K/?L, bilateral lower-extremity edema, abdominal fullness, and elevated liver transaminases, all of which have since normalized. Imaging has shown severe ascites of uncertain etiology, mild hepatosplenomegaly, and a 1.2 cm left renal stone with mild hydronephrosis. Laboratory data on arrival: WBC 5.44 K/?L, Hgb not provided, Na 133 mmol/L, K 4.3 mmol/L, HCO? 21 mmol/L, BUN 25 mg/dL, creatinine 1.4 mg/dL (elevated from baseline), glucose 153 mg/dL, albumin 3.4 g/dL; urinalysis with 1+ protein, trace glucose/ketones. The patient is currently undergoing paracentesis in the ED. Review of Systems Const: Denies: fever(s), chills, body aches or malaise ENMT: Denies: throat pain Card: Reports: swelling of feet/ankles; Denies: chest pain, pre-syncope or dyspnea on exertion Resp: Denies: dyspnea, productive cough, change in phlegm color or hemoptysis GI: Reports: abdominal pain (from distention), nausea and vomiting; Denies: diarrhea, constipation, hematochezia or melena : Denies: flank pain, difficulty urinating, urinary frequency or hematuria Musc: Denies: back pain, joint swelling or joint redness Skin/Breast: Denies: rash or new lesions Neuro: Denies: headache(s) or confusion Medications/Allergies Home Medications ?Medication ?Instructions ?Recorded ?Confirmed ?Last Taken ?Type dorzolamide 22.3 mg-timolol 6.8 1 drop ophthalmic (eye) BID 11/24/19 05/29/25 05/29/25 History mg/mL eye drops (Cosopt) sitagliptin phosphate 100 mg 100 mg PO DAILY #90 tabs 10/20/24 05/29/25 05/29/25 Rx tablet (Januvia) doxycycline monohydrate 100 mg 100 mg PO BID 21 days #42 caps 05/20/25 05/29/25 05/29/25 Rx capsule latanoprost 0.005 % eye drops 1 drp ophthalmic (eye) BEDTIME 05/20/25 05/29/25 05/28/25 History lisinopril 5 mg tablet 10 mg PO DAILY 05/20/25 05/29/25 05/29/25 History glipizide 5 mg tablet 5 mg PO BID 05/29/25 05/29/25 05/29/25 History metformin 500 mg tablet 500 mg PO BID 05/29/25 05/29/25 05/29/25 History ondansetron HCl 4 mg tablet 4 mg PO Q8H PRN nausea and 05/29/25 05/29/25 Unknown Rx vomiting #30 tabs Allergies Allergy/AdvReac Type Severity Reaction Status Date / Time No Known Allergies Allergy Verified 05/29/25 13:38 PFSH Acute PFSH: Medical History Prostate cancer Chronic kidney disease, unspecified CKD stage Renal lithiasis 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 Dupuytren's contracture of left hand History of glaucoma History of hand fracture right hand Diabetes Hypertension Surgical History History of prostate surgery Social History Smoking and tobacco/nicotine status: never used tobacco/nicotine Alcohol intake: never Substance/Drug Use: never Vitals/I&O/Wt Last Vital Signs Temp 97.9 F 05/29/25 13:34 Pulse 93 05/29/25 18:57 Resp 17 05/29/25 18:57 BP 121/88 05/29/25 18:57 Pulse Ox 97 05/29/25 18:57 O2 Del Method Room Air 05/29/25 18:57 05/29/25 05/29/25 05/29/25 06:59 14:59 22:59 Intake Total 0 / 0 1000 / 1000 Balance 0 / 0 1000 / 1000 Weight last 48 hrs Weight 83.915 kg Physical Exam Const: COMMON NORMALS: patient oriented x3 and alert GENERAL APPEARANCE: cooperative ORIENTATION/CONSCIOUSNESS: Yes awake HENMT: COMMON NORMALS: oropharynx normal Neck/C-Spine: COMMON NORMALS: no JVD Resp: COMMON NORMALS: normal respiratory effort and clear to auscultation bilaterally AUSCULTATION: clear to auscultation bilaterally Cardio: COMMON NORMALS: no JVD, regular rhythm, S1 normal heart sound present, S2 normal heart sound present and No murmurs present (Cardio) RHYTHM: regular rhythm HEART SOUNDS: S1 normal heart sound present and S2 normal heart sound present GI: COMMON NORMALS: Normal to inspection, nondistended, normoactive bowel sounds present, Soft to palpation and non-tender PALPATION: Yes Soft to palpation Extremity: COMMON NORMALS: no joint enlargement and no pedal edema Neuro: COMMON NORMALS: patient oriented x3 and moves all extremities SENSORIUM/ORIENTATION: Yes alert Skin: COMMON NORMALS: no rashes or lesions noted GENERAL SKIN EXAM: no rashes or lesions noted Data 05/29/25 15:46 05/29/25 15:46 A&P Assessment and plan 1. Abdominal ascites: Severe ascites of uncertain etiology : Large volume ascites with uncertain cause; imaging suggests possibility of occult peritoneal metastatic disease vs other causes. Reviewed vitals, CBC, INR, requested VBG, reviewed CMP, lipase, UA, chest x-ray, CT chest abdomen pelvis, lower extremity venous duplex. Reviewed ED provider's note, discussed with ED provider. - Perform therapeutic and diagnostic paracentesis in ED. 4 L obtained. Studies requested including albumin, peritoneal fluid analysis, Gram stain and culture, fungal culture mycobacterial culture, cytology with history of prostate cancer, triglycerides. - Ordered tick panel, repeat CBC/CMP. - Requested echocardiogram to further evaluate possible cardiac contribution from right heart failure given leg edema as well. - Monitor blood pressure post-paracentesis for risk of hypotension. - IV fluids as needed, hold for now; monitor for fluid overload. Without evidence of cirrhosis on ultrasound recently. Liver moderately echogenic. Without other parameters suggestive of cirrhosis, normal blood counts, normal INR, sodium, liver parameters. 2. Nausea and vomiting: Likely related to abdominal distention/ascites; reported reddish-brown emesis today. - Symptom expected to improve with paracentesis; no additional antiemetic plan documented. He is already feeling better without any further abdominal discomfort with relief of distention. - Zofran as needed - PPI for possible PUD, GERD - Follow-up peritoneal fluid studies and Gram stain. 3. Leg edema: venous duplex negative for DVT (05/29/25). - Assess echocardiogram - Monitor edema; reassess after paracentesis and fluid management. - Discussed with him and his spouse, elevate lower extremities, consider compression stockings 4. Chronic cough: Has been having chronic cough for several months of unclear etiology. On discussion with him he does have GERD, and so cough may be triggered by reflux overnight. As he has also been having significant symptoms with nausea and vomiting he started on PPI. Consider additional assessment with endoscopy after discharge. Cough otherwise may be caused by lisinopril. He did recently discontinue it and is currently no longer taking it. Lower suspicion for PE as he is otherwise not tachycardic, saturating well on room air, no DVT on venous duplex. With unremarkable lungs on CT with contrast, no report of any large clots. - Follow-up echocardiogram - Follow-up with PCP, consider further workup, consider PFT Plan: History of neutropenia (resolved), transaminitis which also resolved, as well as mild hepatosplenomegaly: Prior ANC 0.8 K/?L on 05/20/25; counts normalized. - He is on doxycycline. Tick panel seems to have been meant to be sent previously but I do not see any results. Requested. Discussed with him and his . - Question of monoclonal gammopathy? Seems to have had a IgG kappa spike on 20 May? But then subsequent test appears to be reported negative on the ? Discussed with him and his spouse discordant results. Needs to follow-up with hematology. - Repeat CBC ordered to monitor for recurrence. Type 2 diabetes mellitus (uncontrolled) : A1c increased to 8.3 % (05/04/25). - Initiate consistent carbohydrate diet while inpatient. - Use sliding-scale insulin coverage. - Hold metformin and Januvia temporarily given renal function and acute illness. - Check serum ketones and VBG (done; anion gap mildly elevated). Chronic kidney disease / renal insufficiency : Creatinine 1.4 mg/dL, elevated compared with prior labs, renal ultrasound suggests parenchymal disease. - Monitor daily CMP to trend renal function. - Avoid nephrotoxic agents; metformin held. Hypertension : Long-standing; current BP 121/88 mmHg. - He recently stopped lisinopril, continue to withhold due to nonresolving cough; monitor blood pressures during hospitalization. Glaucoma : Chronic condition managed with ophthalmic drops. - Continue timolol and latanoprost eye drops. PDMP PDMP Reviewed: Not Reviewed Attestations Medical Necessity Statement*: Place in observation for additional assessment and management of abdominal ascites with recurrent nausea and vomiting, leg edema, chronic cough, with recent transient neutropenia, transaminitis, mild hepatosplenomegaly and a gentleman with underlying diabetes, CKD, additional comorbidities. and High MDM includes amount and/or complexity of data reviewed/ordered [ previous or external records, resulted lab(s)/test(s), ordered lab(s)/test(s) and other healthcare professional discussion] and described risk of complication, morbidity or mortality of management as documented Diagnoses Abdominal ascites R18.8 Nausea and vomiting R11.2 Leg edema R60.0 Chronic cough R05.3
[2025-05-29 21:10] LABS: Mononuclear #, Pertinoneal Fl 1.125 10^3/uL; Mononuclear %, Pertinoneal Fl 94.200 %; Polynuclear # Cells, Perit 0.069 10^3/uL; Polynuclear % Cells,Perit 5.800 %; RBC Pertioneal Fluid 1 10^3/uL; WBC Peritoneal Fluid 1194 /uL
[2025-05-29 21:12] LABS: Color, Peritoneal Fluid Yellow (Pale Yellow); Cyto Order Verification Order Verified
[2025-05-29 21:13] LABS: Appearance, Peritoneal Fluid Clear (Clear); Pathology Referral Yes
[2025-05-29] MEDS: lidocaine-epi 1% 20 mL INJ INJECTION (21:18)
[2025-05-29 21:21] VITALS: BP 150/104; PULSE 84; RESP 16; O2SAT 96
[2025-05-29 21:24] LABS: Base Excess VBG 0.3 mmol/L (-3.0-3.0); Blood Gas Sample Site Not specified; Blood Gas Sample Type Venous; HCO3 VBG 24.1 mmol/L (24-28); PCO2 VBG 35.9 mmHg (41-51); PO2 VBG 57.4 mmHg (25-40); Venous Blood Gas Hematocrit 43.8 % (42-52); pH VBG 7.44 (7.32-7.42)
[2025-05-29 21:33] LABS: Albumin Peritoneal Fluid 2.6 g/dL
--- NOTE | 2025-05-29 21:48 | W.ED.NAVMDI ---
HPI - Nausea/Vomiting/Diarrhea General: Chief complaint: Nausea/Vomiting/Diarrhea Stated complaint: unable to keep things down, bloated abdomen Time Seen by Provider: 05/29/25 14:49 History of Present Illness: 85-year-old male presenting with nausea, vomiting, abdominal distension, and heartburn for 2 days. Patient reports being unable to keep food or fluids down for approximately 3 days, with vomiting occurring about 2 hours after eating or drinking. He describes a burning sensation in his throat prior to vomiting, stating it seems like a fire right in my throat. Patient reports progressive abdominal distension that has worsened over the past 2 weeks (since May 13, 2025) along with swelling in his left foot. Patient also reports difficulty swallowing food. He was initially seen by his PCP, Dr. Goodwin, who attributed the abdominal distension to aging. He was subsequently referred to Dr. Dyson (oncologist) who identified the abdominal distension as fluid accumulation of unclear etiology. Dr. Dyson ordered an ultrasound which was performed yesterday, but results have not yet been reviewed with the patient. Patient was also prescribed antibiotics by Dr. Dyson for a tick bite on May 20. The patient reports he has never had acid reflux or heartburn until April 2025, when symptoms began and have progressively worsened. Patient presents to the ED today due to inability to tolerate oral intake and worsening symptoms, as his follow-up appointment is not scheduled until June 02. Related Data Home Medications ?Medication ?Instructions ?Recorded ?Confirmed dorzolamide 22.3 mg-timolol 6.8 1 drop ophthalmic (eye) BID 11/24/19 05/29/25 mg/mL eye drops (Cosopt) latanoprost 0.005 % eye drops 1 drp ophthalmic (eye) BEDTIME 05/20/25 05/29/25 lisinopril 5 mg tablet 10 mg PO DAILY 05/20/25 05/29/25 glipizide 5 mg tablet 5 mg PO BID 05/29/25 05/29/25 metformin 500 mg tablet 500 mg PO BID 05/29/25 05/29/25 Previous Rx's ?Medication ?Instructions ?Recorded sitagliptin phosphate 100 mg 100 mg PO DAILY #90 tabs 10/20/24 tablet (Januvia) doxycycline monohydrate 100 mg 100 mg PO BID 21 days #42 caps 05/20/25 capsule ondansetron HCl 4 mg tablet 4 mg PO Q8H PRN nausea and 05/29/25 vomiting #30 tabs Allergies Allergy/AdvReac Type Severity Reaction Status Date / Time No Known Allergies Allergy Verified 05/29/25 13:38 PFSH ED PFSH: Medical History (Updated 05/29/25 @ 21:51 by Titi Diego MD) Prostate cancer Chronic kidney disease, unspecified CKD stage Renal lithiasis 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 Dupuytren's contracture of left hand History of glaucoma History of hand fracture right hand Diabetes Hypertension Surgical History History of prostate surgery Social History Smoking and tobacco/nicotine status: never used tobacco/nicotine Alcohol intake: never Substance/Drug Use: never Physical Exam Const: COMMON NORMALS: no acute distress, average body habitus, alert and well nourished GENERAL APPEARANCE: cooperative ORIENTATION/CONSCIOUSNESS: Yes awake HENMT: COMMON NORMALS: normocephalic and atraumatic HEAD & SCALP: normocephalic and atraumatic Eye: COMMON NORMALS: conjunctivae normal CONJUNCTIVA: Yes conjunctivae normal Neck/C-Spine: GENERAL: Yes normal visual inspection Resp: COMMON NORMALS: normal respiratory effort, No retractions and No use of accessory muscles Cardio: COMMON NORMALS: regular rhythm and Peripheral pulses 2+ throughout RHYTHM: regular rhythm PERIPHERAL PULSES: Peripheral pulses 2+ throughout GI: COMMON NORMALS: non-tender OTHER: distended with ascites Extremity: COMMON NORMALS: full ROM and no pedal edema Neuro: COMMON NORMALS: no focal motor deficits SENSORIUM/ORIENTATION: Yes alert Skin: COMMON NORMALS: no rashes or lesions noted GENERAL SKIN EXAM: no rashes or lesions noted Procedures Paracentesis Time Out Performed: Yes Indication: Ascites Procedure: therapeutic paracentesis Location: RLQ Local Anesthetic: lidocaine 1% Amount of anesthesia used (mL): 5 Bedside Ultrasound Used: yes, Ascites confirmed and location marked Preparation: 11 blade used to make corrine in skin Amount of fluid obtained (mL): 4,000 Fluid: clear and sent to lab for analysis Post Procedure Exam: awake, alert, normal BP, normal HR and normal SpO2 Patient Tolerated Procedure: well and no complications Complications: none Course Vital Signs: Vital signs: Vital Signs Temperature 97.9 F 05/29/25 13:34 Pulse Rate 84 05/29/25 21:21 Respiratory Rate 16 05/29/25 21:21 Blood Pressure 150/104 05/29/25 21:21 Pulse Oximetry 96 05/29/25 21:21 Oxygen Delivery Me thod Room Air 05/29/25 18:57 MDM - Nausea/Vomiting/Diarrhea Medical Decision Making ROS: Constitutional: Positive for abdominal distension and left foot swelling. GI: Positive for nausea, vomiting, heartburn, and difficulty swallowing. Reports normal bowel movements daily, including today at approximately 12:30. : Normal urination pattern. Musculoskeletal: Denies leg pain or foot pain. All other systems reviewed and negative. PAST HISTORICAL DATA: PMH: Diabetes mellitus, History of kidney stones PSH: Prostate cancer treatment (unclear if currently in remission), Lithotripsy for kidney stone (1.5 years ago), Skin cancer removal from face and ear Social: No information provided regarding tobacco, alcohol, or drug use INITIAL IMPRESSION AND PLAN: Given the history and presentation, the primary working diagnosis is ascites of unknown etiology with associated nausea, vomiting, and dehydration. Additional considerations include malignancy with peritoneal carcinomatosis, cirrhosis with portal hypertension, heart failure, or other causes of third-spacing. Based on this initial impression I will order: 1. Laboratory studies including CBC, CMP, and other relevant tests 2. CT scan of chest and abdomen to evaluate for underlying pathology 3. Ultrasound of left leg to evaluate for DVT given unilateral edema 4. Consultation with oncology regarding management 5. Therapeutic paracentesis for symptom relief and diagnostic evaluation 6. IV fluids for dehydration 7. Antiemetics for nausea and vomiting 8. Admission to hospital for further management TEST INTERPRETATIONS: Paracentesis fluid: Straw-colored ascitic fluid obtained, consistent with transudative ascites. Samples sent for cytology and chemistry studies. PROCEDURES: Procedure: Therapeutic Paracentesis Date/Time: May 29, 2025 Indication: Symptomatic ascites with abdominal distension, nausea, and vomiting Consent: Patient provided informed written consent for paracentesis in the ED Technique: Area was prepped and draped in sterile fashion. 5 mL of 1% lidocaine without epinephrine was infiltrated in the right lower quadrant. Ultrasound guidance was used, and a blunt tip trocar was inserted through the skin and through the peritoneum into the intra-abdominal space. Straw-colored ascitic fluid was aspirated. A total of 4 liters of ascites was drained without complications. Specimens: Fluid sent for cytology and chemistry studies Complications: None. Patient tolerated the procedure well. Disposition: Patient to be admitted to hospitalist service CONSIDERED BUT NOT PERFORMED: Interventional Radiology-guided paracentesis was considered but not performed due to lack of IR availability until Sunday. Emergency physician-performed paracentesis was deemed more appropriate given patient's symptoms and need for immediate therapeutic drainage. FINAL IMPRESSION: Based on all the above, my clinical impression is most compatible with ascites of unknown etiology with associated nausea, vomiting, and dehydration requiring therapeutic paracentesis. The clinical picture is not currently suggestive of acute surgical abdomen, bowel obstruction, or acute cardiac event. Although other conditions were also considered, they were deemed unlikely based on the clinical information available. CLINICAL DISPOSITION: The patient's current condition is stable following therapeutic paracentesis in my estimation and the most appropriate and indicated disposition at this time is admission to the hospitalist service. Rationale for admission: Patient requires admission due to significant ascites of unknown etiology requiring further diagnostic evaluation, inability to tolerate oral intake leading to dehydration, and need for close monitoring of fluid status following large-volume paracentesis. The patient's advanced age and comorbidities also warrant inpatient management. Outpatient management would be inappropriate given the patient's inability to maintain adequate hydration and the need for expedited diagnostic workup to determine the underlying cause of his ascites, which may represent malignancy based on oncology consultation. RISK STRATIFICATION AND CLINICAL DECISION RULES APPLIED: No specific clinical decision rules were applied in this case. Clinical decision-making was based on the patient's presentation with significant ascites requiring therapeutic intervention, inability to tolerate oral intake, and need for diagnostic evaluation of underlying etiology. CASE SUMMARY: 85-year-old male with history of diabetes, prostate cancer, and kidney stones presented with progressive abdominal distension, nausea, vomiting, and heartburn for 2 days. Patient had been unable to tolerate oral intake for approximately 3 days. Physical examination revealed significant abdominal distension consistent with ascites and left foot edema. After consultation with oncology, decision was made to perform therapeutic paracentesis in the ED due to unavailability of interventional radiology until Sunday. Procedure was performed under ultrasound guidance with removal of 4 liters of straw-colored ascitic fluid. Fluid was sent for cytology and chemistry studies to evaluate for malignancy and other etiologies. Following the procedure, patient was admitted to the hospitalist service for further management, including continued diagnostic evaluation and treatment of dehydration. Oncology will follow the patient during admission to guide further management based on paracentesis fluid analysis results. Lab Data I reviewed the patient's lab results. 05/29/25 15:46 05/29/25 15:46 Radiology Impressions Chest X-Ray 05/29/25 15:19 IMPRESSION: The CT of the chest is been requested will further evaluate the thoracic aorta. No acute pulmonary parenchymal or pleural abnormality. Chest/Abdomen/Pelvis CT 05/29/25 15:19 IMPRESSION: Small bilateral pleural effusions of uncertain etiology IMPRESSION: 1. Severe ascites of uncertain etiology. In the setting of previous prostate cancer you may consider occult diffuse peritoneal metastatic disease 2. A benign renal cyst or cysts have been detected. No further follow-up imaging is required. COMMENTS: Consistent with the [employer]'s Incidental Findings Committee white paper (J Am Javed Radiol 2018): Any incidental renal lesion less than 1 cm or classified as too small to characterize, or any incidental cystic renal lesion characterized as simple-appearing, is likely benign. No follow-up imaging is recommended for these lesions per consensus recommendations based on imaging criteria. Laboratory Results WBC 5.44 10^3/uL (3.29-11.43) 05/29/25 15:46 RBC 4.68 10^6/uL (3.85-5.65) 05/29/25 15:46 Hgb 13.90 g/dL (11.27-16.99) 05/29/25 15:46 Hct 42.7 % (37-53) 05/29/25 15:46 MCV 91.2 fl (82-101) 05/29/25 15:46 MCH 29.7 pg (27-33) 05/29/25 15:46 MCHC 32.6 g/dL (30-55) 05/29/25 15:46 RDW 13.7 % (12.1-15.1) 05/29/25 15:46 Plt Count 270 10^3/cmm (157-399) 05/29/25 15:46 MPV 10.4 fL (7.4-10.4) 05/29/25 15:46 Neut % (Auto) 62.5 % 05/29/25 15:46 Lymph % (Auto) 25.9 % 05/29/25 15:46 [place] % (Auto) 9.0 % 05/29/25 15:46 Eos % (Auto) 1.7 % 05/29/25 15:46 Baso % (Auto) 0.7 % 05/29/25 15:46 Neut # (Auto) 3.40 10^3/uL (1.8-7.7) 05/29/25 15:46 Lymph # (Auto) 1.4 10^3/uL (0.8-4.8) 05/29/25 15:46 [place] # (Auto) 0.5 10^3/uL (0.2-0.9) 05/29/25 15:46 Eos # (Auto) 0.1 10^3/uL (0.0-0.8) 05/29/25 15:46 Baso # (Auto) 0.0 10^3/uL (0.0-0.1) 05/29/25 15:46 Nucleated RBC % (auto) 0 % 05/29/25 15:46 Nucleated RBCs # 0.0 /100WBC 05/29/25 15:46 Differential Comment Cancelled 05/29/25 21:03 PT 14.20 SECONDS (12.1-14.9) 05/29/25 15:46 INR 1.03 (0.8-1.2) 05/29/25 15:46 APTT 30.7 SECONDS (23.9-36.7) 05/29/25 15:46 Specimen Type Venous 05/29/25 21:14 Sample Site Not specified 05/29/25 21:14 Danyel Test N/a 05/29/25 21:14 VBG pH 7.44 (7.32-7.42) H 05/29/25 21:14 VBG pCO2 35.9 mmHg (41-51) L 05/29/25 21:14 VBG pO2 57.4 mmHg (25-40) H 05/29/25 21:14 VBG HCO3 24.1 mmol/L (24-28) 05/29/25 21:14 VBG Base Excess 0.3 mmol/L (-3.0-3.0) 05/29/25 21:14 VBG Hematocrit 43.8 % (42-52) 05/29/25 21:14 Supervisor Inventory Merchandising ID [id number] 05/29/25 21:14 Sodium 138 mmol/L (136-145) 05/29/25 15:46 Potassium 4.3 mmol/L (3.5-5.1) 05/29/25 15:46 Chloride 103 mmol/L (98-107) 05/29/25 15:46 Carbon Dioxide 21 mmol/L (22-29) L 05/29/25 15:46 Anion Gap 18.3 (5-19) 05/29/25 15:46 BUN 25 mg/dL (8-23) H 05/29/25 15:46 Creatinine 1.4 mg/dL (0.7-1.2) H 05/29/25 15:46 GFR Calculation Not Reportable 05/29/25 15:46 Glucose 153 mg/dL (65-115) H 05/29/25 15:46 Calculated Osmolality 293 mOsm/kg (285-295) 05/29/25 15:46 Calcium 9.0 mg/dL (8.5-10.5) 05/29/25 15:46 Total Bilirubin 0.5 mg/dL (0.15-1.2) 05/29/25 15:46 AST 17 U/L (0-40) 05/29/25 15:46 ALT 22 U/L (0-41) 05/29/25 15:46 Alkaline Phosphatase 93 U/L (40-130) 05/29/25 15:46 Total Protein 7.0 g/dL (6.6-8.7) 05/29/25 15:46 Albumin 3.4 g/dL (3.5-5.2) L 05/29/25 15:46 Globulin 3.6 g/dL (1.3-4.6) 05/29/25 15:46 Lipase 40 U/L (13-60) 05/29/25 15:46 Urine Color Yellow (Yellow) 05/29/25 15:19 Urine Appearance Clear (CLEAR) 05/29/25 15:19 Urine pH 5.0 (5-7) 05/29/25 15:19 Ur Specific Elbert 1.024 (1.005-1.030) 05/29/25 15:19 Urine Protein 1+ (Negative) A 05/29/25 15:19 Urine Glucose (UA) Trace (Normal) H 05/29/25 15:19 Urine Ketones Trace (Negative) 05/29/25 15:19 Urine Blood Negative (Negative) 05/29/25 15:19 Urine Nitrate Negative (Negative) 05/29/25 15:19 Urine Bilirubin Negative (Negative) 05/29/25 15:19 Urine Urobilinogen 0.2 mg/dL (Negative) 05/29/25 15:19 Ur Leukocyte Esterase Negative (Negative) 05/29/25 15:19 Urine RBC 0-2 /hpf (0-2) 05/29/25 15:19 Urine WBC 0-5 /hpf (0-5) 05/29/25 15:19 Ur Squamous Epith Cells 0-5 /hpf (0-5) 05/29/25 15:19 Amorphous Sediment Not Reportable 05/29/25 15:19 Urine Bacteria None seen /hpf (NONE) 05/29/25 15:19 Hyaline Casts 4.11 /lpf 05/29/25 15:19 Fluid Color Cancelled 05/29/25 21:03 Fluid Appearance Cancelled 05/29/25 21:03 Fluid Specific Grav 1.032 05/29/25 21:03 Fluid WBC Cancelled 05/29/25 21:03 Fluid RBC Cancelled 05/29/25 21:03 Fluid Tot Cell Count Cancelled 05/29/25 21:03 Fld Polynuclear WBCs # Cancelled 05/29/25 21:03 Fld Polynuclear WBCs % Cancelled 05/29/25 21:03 Fl Mononucl WBCs #(Auto) Cancelled 05/29/25 21:03 Fl Mononuclear % Auto Cancelled 05/29/25 21:03 Fld Crystal Laterality Cancelled 05/29/25 21:03 Fluid Triglycerides 25 mg/dL (0-150) 05/29/25 21:03 Peritoneal Color Yellow (Pale Yellow) 05/29/25 21:03 Peritoneal Appearance Clear (Clear) 05/29/25 21:03 Peritoneal WBC 1194 /uL 05/29/25 21:03 Peritoneal RBC 1 10^3/uL 05/29/25 21:03 Periton Mononu # Auto 1.125 10^3/uL 05/29/25 21:03 Mononuclear WBCs % 94.200 % 05/29/25 21:03 Polynuclear WBCs % 5.800 % 05/29/25 21:03 Perit Polynuc WBCs # 0.069 10^3/uL 05/29/25 21:03 Peritoneal Diff Commnt Yes 05/29/25 21:03 Peritoneal Albumin 2.6 g/dL 05/29/25 21:03 Serum Ketones Negative (Negative) 05/29/25 15:46 All radiology interpretation(s) finalized by discharge Discharge Plan Discharge Patient Disposition: Placed in Observation Admit Provider: Matthew Segal Clinical Impression: Abdominal ascites, Nausea and vomiting, Dehydration Coding Level of Care Code ED Bracelet Former for Chg Satya
[2025-05-29 22:21] VITALS: BP 144/77; PULSE 81; RESP 18; TEMP 36.5; O2SAT 95
[2025-05-29 22:22] VITALS: BMI 26.3
[2025-05-30 00:55] VITALS: BP 116/59; PULSE 85; RESP 16; TEMP 36.3; O2SAT 92
[2025-05-30 03:09] LABS: Hematocrit 39.9 % (37-53); Hemoglobin 12.90 g/dL (11.27-16.99); Mean Corpuscular HGB Conc 32.3 g/dL (30-55); Mean Corpuscular Hemoglobin 29.4 pg (27-33); Mean Corpuscular Volume 90.9 fl (82-101); Nucleated Red Blood Cells % 0 %; Platelet Count 197 10^3/cmm (157-399); Red Blood Count 4.39 10^6/uL (3.85-5.65); White Blood Count 5.65 10^3/uL (3.29-11.43)
[2025-05-30 03:27] LABS: Alanine Aminotransferase 18 U/L (0-41); Albumin Level 2.8 g/dL (3.5-5.2); Alkaline Phosphatase 82 U/L (40-130); Anion Gap 16.0 (5-19); Aspartate Amino Transferase 15 U/L (0-40); Blood Urea Nitrogen 22 mg/dL (8-23); Calcium 8.5 mg/dL (8.5-10.5); Carbon Dioxide 24 mmol/L (22-29); Chloride 105 mmol/L (98-107); Creatinine Clr Calc Pharmacy 48.1950; Globulin 3.1 g/dL (1.3-4.6); Glucose 133 mg/dL (65-115); Osmolality Calculated 297 mOsm/kg (285-295); Potassium 4.0 mmol/L (3.5-5.1); Sodium 141 mmol/L (136-145); Total Protein 5.9 g/dL (6.6-8.7)
[2025-05-30 04:00] VITALS: BP 114/67; PULSE 63; RESP 12; TEMP 36.4; O2SAT 97
--- NOTE | 2025-05-30 06:47 | P.PN_ITS ---
Subjective 2 Subjective: seen this am he states he feels a lot better after paracentesis in ER creatinine is 1.2 Vitals/I&O/Wt Last Vital Signs Temp 97.5 F L 05/30/25 04:00 Pulse 63 05/30/25 04:00 Resp 12 05/30/25 04:00 BP 114/67 05/30/25 04:00 Pulse Ox 97 05/30/25 04:00 O2 Del Method Room Air 05/30/25 04:00 05/29/25 05/29/25 05/30/25 14:59 22:59 06:59 Intake Total 0 / 0 1431.25 / 1431.25 240 / 1671.25 Balance 0 / 0 1431.25 / 1431.25 240 / 1671.25 Weight last 48 hrs Weight 83.007 kg Weight 83.28 kg Weight 83.915 kg Physical Exam 2 Const: COMMON NORMALS: patient oriented x3 and alert GENERAL APPEARANCE: c ooperative ORIENTATION/CONSCIOUSNESS: Yes awake HENMT: COMMON NORMALS: oropharynx normal Resp: COMMON NORMALS: normal respiratory effort and clear to auscultation bilaterally AUSCULTATION: clear to auscultation bilaterally Cardio: COMMON NORMALS: regular rhythm, S1 normal heart sound present, S2 normal heart sound present and No murmurs present (Cardio) RHYTHM: regular rhythm HEART SOUNDS: S1 normal heart sound present and S2 normal heart sound present GI: COMMON NORMALS: Normal to inspection, nondistended, normoactive bowel sounds present, Soft to palpation and non-tender PALPATION: Yes Soft to palpation Extremity: COMMON NORMALS: no joint enlargement and no pedal edema Neuro: COMMON NORMALS: patient oriented x3 and moves all extremities S ENSORIUM/ORIENTATION: Yes alert Data 05/30/25 02:18 05/30/25 02:18 A&P Assessment and plan 1. Abdominal ascites: Severe ascites of uncertain etiology : Large volume ascites with uncertain cause; imaging suggests possibility of occult peritoneal metastatic disease vs other causes. Reviewed vitals, CBC, INR, requested VBG, reviewed CMP, lipase, UA, chest x-ray, CT chest abdomen pelvis, lower extremity venous duplex. Reviewed ED provider's note, discussed with ED provider. - Perform therapeutic and diagnostic paracentesis in ED. 4 L obtained. Studies requested including albumin, peritoneal fluid analysis, Gram stain and culture, fungal culture mycobacterial culture, cytology with history of prostate cancer, triglycerides. - Ordered tick panel, repeat CBC/CMP. - Requested echocardiogram to further evaluate possible cardiac contribution from right heart failure given leg edema as well. - Monitor blood pressure post-paracentesis for risk of hypotension. - IV fluids as needed, hold for now; monitor for fluid overload. Without evidence of cirrhosis on ultrasound recently. Liver moderately echogenic. Without other parameters suggestive of cirrhosis, normal blood counts, normal INR, sodium, liver parameters. 2. Nausea and vomiting: Likely related to abdominal distention/ascites; reported reddish-brown emesis today. - Symptom expected to improve with paracentesis; no additional antiemetic plan documented. He is already feeling better without any further abdominal discomfort with relief of distention. - Zofran as needed - PPI for possible PUD, GERD - Follow-up peritoneal fluid studies and Gram stain. 3. Leg edema: venous duplex negative for DVT (05/29/25). - Assess echocardiogram - Monitor edema; reassess after paracentesis and fluid management. - Discussed with him and his spouse, elevate lower extremities, consider compression stockings 4. Chronic cough: Has been having chronic cough for several months of unclear etiology. On discussion with him he does have GERD, and so cough may be triggered by reflux overnight. As he has also been having significant symptoms with nausea and vomiting he started on PPI. Consider additional assessment with endoscopy after discharge. Cough otherwise may be caused by lisinopril. He did recently discontinue it and is currently no longer taking it. Lower suspicion for PE as he is otherwise not tachycardic, saturating well on room air, no DVT on venous duplex. With unremarkable lungs on CT with contrast, no report of any large clots. - Follow-up echocardiogram - Follow-up with PCP, consider further workup, consider PFT Plan: History of neutropenia (resolved), transaminitis which also resolved, as well as mild hepatosplenomegaly: Prior ANC 0.8 K/?L on 05/20/25; counts normalized. - He is on doxycycline. Tick panel seems to have been meant to be sent previously but I do not see any results. Requested. Discussed with him and his . - Question of monoclonal gammopathy? Seems to have had a IgG kappa spike on 20 May? But then subsequent test appears to be reported negative on the ? Discussed with him and his spouse discordant results. Needs to follow-up with hematology. - Repeat CBC ordered to monitor for recurrence. Type 2 diabetes mellitus (uncontrolled) : A1c increased to 8.3 % (05/04/25). - Initiate consistent carbohydrate diet while inpatient. - Use sliding-scale insulin coverage. - Hold metformin and Januvia temporarily given renal function and acute illness. - Check serum ketones and VBG (done; anion gap mildly elevated). Chronic kidney disease / renal insufficiency : Creatinine 1.4 mg/dL, elevated compared with prior labs, renal ultrasound suggests parenchymal disease. - Monitor daily CMP to trend renal function. - Avoid nephrotoxic agents; metformin held. Hypertension : Long-standing; current BP 121/88 mmHg. - He recently stopped lisinopril, continue to withhold due to nonresolving cough; monitor blood pressures during hospitalization. Glaucoma : Chronic condition managed with ophthalmic drops. - Continue timolol and latanoprost eye drops. 05/30/2025 agree with HnP A&P pt feeling better paracentesis performed in ER cell count gram stain pending PDMP PDMP Reviewed: Not Reviewed Attestations 2 Medical Necessity Statement*: Place in observation for additional assessment and management of abdominal ascites with recurrent nausea and vomiting, leg edema, chronic cough, with recent transient neutropenia, transaminitis, mild hepatosplenomegaly and a gentleman with underlying diabetes, CKD, additional comorbidities. Diagnoses Abdominal ascites R18.8 Nausea and vomiting R11.2 Leg edema R60.0 Chronic cough R05.3
[2025-05-30 07:56] VITALS: BP 107/68; PULSE 66; RESP 16; O2SAT 94
[2025-05-30] MEDS: dorzolamide/timolol Op Soln 10 mL Btl 1 DROP EYE-BOTH (09:29)
[2025-05-30 11:30] VITALS: BP 115/71; PULSE 80; RESP 16; TEMP 36.6; O2SAT 96
--- NOTE | 2025-05-30 12:35 | PM.DCS ---
Discharge Providers Date of Admission: 05/29/25 21:22 Date of Discharge: May 30, 2025 Attending Provider at Admission: Matthew Segal Attending Provider at Discharge: Jess Cabrera MD Primary Care Provider: Param Goodwin MD Diagnoses at Discharge Discharge Diagnosis 1. Abdominal ascites: 2. Nausea and vomitin. Leg edema: 4. Chronic cough: Reason for Visit Reason for Visit: unable to keep things down, bloated abdomen Hospital Course Hospital Course Patient presented to the hospital with complaint of abdominal pain secondary to severe ascites. Thoracentesis performed in the ER with 4 L removed. Cytology negative for potential SBP. Patient feeling better after thoracentesis. Patient requesting to go home. Echo ordered on admission was reviewed prior to discharge. Patient will follow-up with his oncologist outpatient. He has an upcoming appointment within the next 2 to 3 days he states. He will be discharged home in stable condition at this time. Physical Exam Const: COMMON NORMALS: patient oriented x3 and alert GENERAL APPEARANCE: cooperative ORIENTATION/CONSCIOUSNESS: Yes awake HENMT: COMMON NORMALS: oropharynx normal Resp: COMMON NORMALS: normal respiratory effort and clear to auscultation bilaterally AUSCULTATION: clear to auscultation bilaterally Cardio: COMMON NORMALS: regular rhythm, S1 normal heart sound present, S2 normal heart sound present and No murmurs present (Cardio) RHYTHM: regular rhythm HEART SOUNDS: S1 normal heart sound present and S2 normal heart sound present GI: COMMON NORMALS: Normal to inspection, nondistended, normoactive bowel sounds present, Soft to palpation and non-tender PALPATION: Yes Soft to palpation Extremity: COMMON NORMALS: no joint enlargement and no pedal edema Neuro: COMMON NORMALS: patient oriented x3 and moves all extremities SENSORIUM/ORIENTATION: Yes alert Discharge Data Studies Completed and Pending Completed Studies During Hospitalization Category Date Time Status CT Angio Chest + Abdomen Pelvis w/ contrast; 77616 + Cat Scan 05/29/25 15:19 Completed 84014 Stat XR chest 1V portable [id number] Stat Exams 05/29/25 15:19 Completed US venous duplex lower extremity LT [CV venous duplex Ultrasound 05/29/25 15:21 [place] [id number]] Stat Pending at discharge Category Date Time Status Amylase, Peritoneal Fluid Routine Lab 05/29/25 21:03 Received Anaerobic Culture Routine Lab 05/29/25 21:03 Received Basic Metabolic Panel AM LABS Lab 05/31/25 04:00 Ordered Body Fluid Culture & GS Routine Lab 05/29/25 21:03 Received Complete Blood Count w/Auto AM LABS Lab 05/31/25 04:00 Ordered Magnesium AM LABS Lab 05/31/25 04:00 Ordered Mycobacteria, Culture w/Fluor Routine Lab 05/29/25 21:03 Received Peritoneal Fld Adenosine Deami Routine Lab 05/29/25 21:03 Received Tick Panel Routine Lab 05/29/25 21:14 Received VBG [Venous Blood Gas] Routine Lab 05/29/25 21:14 Results Cytology [PTH] Routine Pth 05/29/25 20:52 Received CV. echo complete* [id number] Routine Ultrasound 05/30/25 21:05 Ordered Radiology Impressions Chest X-Ray 05/29/25 15:19 IMPRESSION: The CT of the chest is been requested will further evaluate the thoracic aorta. No acute pulmonary parenchymal or pleural abnormality. Chest/Abdomen/Pelvis CT 05/29/25 15:19 IMPRESSION: Small bilateral pleural effusions of uncertain etiology IMPRESSION: 1. Severe ascites of uncertain etiology. In the setting of previous prostate cancer you may consider occult diffuse peritoneal metastatic disease 2. A benign renal cyst or cysts have been detected. No further follow-up imaging is required. COMMENTS: Consistent with the [place] [employer]'s Incidental Findings Committee white paper (J Am Javed Radiol 2018): Any incidental renal lesion less than 1 cm or classified as too small to characterize, or any incidental cystic renal lesion characterized as simple-appearing, is likely benign. No follow-up imaging is recommended for these lesions per consensus recommendations based on imaging criteria. Laboratory Results WBC 5.65 10^3/uL (3.29-11.43) 05/30/25 02:18 RBC 4.39 10^6/uL (3.85-5.65) 05/30/25 02:18 Hgb 12.90 g/dL (11.27-16.99) 05/30/25 02:18 Hct 39.9 % (37-53) 05/30/25 02:18 MCV 90.9 fl (82-101) 05/30/25 02:18 MCH 29.4 pg (27-33) 05/30/25 02:18 MCHC 32.3 g/dL (30-55) 05/30/25 02:18 RDW 13.7 % (12.1-15.1) 05/30/25 02:18 Plt Count 197 10^3/cmm (157-399) 05/30/25 02:18 MPV 10.9 fL (7.4-10.4) H 05/30/25 02:18 Neut % (Auto) 69.3 % 05/30/25 02:18 Lymph % (Auto) 21.2 % 05/30/25 02:18 [place] % (Auto) 8.1 % 05/30/25 02:18 Eos % (Auto) 0.7 % 05/30/25 02:18 Baso % (Auto) 0.5 % 05/30/25 02:18 Neut # (Auto) 3.91 10^3/uL (1.8-7.7) 05/30/25 02:18 Lymph # (Auto) 1.2 10^3/uL (0.8-4.8) 05/30/25 02:18 [place] # (Auto) 0.5 10^3/uL (0.2-0.9) 05/30/25 02:18 Eos # (Auto) 0.0 10^3/uL (0.0-0.8) 05/30/25 02:18 Baso # (Auto) 0.0 10^3/uL (0.0-0.1) 05/30/25 02:18 Nucleated RBC % (auto) 0 % 05/30/25 02:18 Nucleated RBCs # 0.0 /100WBC 05/30/25 02:18 Differential Comment Cancelled 05/29/25 21:03 PT 14.20 SECONDS (12.1-14.9) 05/29/25 15:46 INR 1.03 (0.8-1.2) 05/29/25 15:46 APTT 30.7 SECONDS (23.9-36.7) 05/29/25 15:46 Specimen Type Venous 05/29/25 21:14 Sample Site Not specified 05/29/25 21:14 Danyel Test N/a 05/29/25 21:14 VBG pH 7.44 (7.32-7.42) H 05/29/25 21:14 VBG pCO2 35.9 mmHg (41-51) L 05/29/25 21:14 VBG pO2 57.4 mmHg (25-40) H 05/29/25 21:14 VBG HCO3 24.1 mmol/L (24-28) 05/29/25 21:14 VBG Base Excess 0.3 mmol/L (-3.0-3.0) 05/29/25 21:14 VBG Hematocrit 43.8 % (42-52) 05/29/25 21:14 Mail Technician ID [email or web address] 05/29/25 21:14 Sodium 141 mmol/L (136-145) 05/30/25 02:18 Potassium 4.0 mmol/L (3.5-5.1) 05/30/25 02:18 Chloride 105 mmol/L (98-107) 05/30/25 02:18 Carbon Dioxide 24 mmol/L (22-29) 05/30/25 02:18 Anion Gap 16.0 (5-19) 05/30/25 02:18 BUN 22 mg/dL (8-23) 05/30/25 02:18 Creatinine 1.2 mg/dL (0.7-1.2) 05/30/25 02:18 GFR Calculation Not Reportable 05/30/25 02:18 Glucose 133 mg/dL (65-115) H 05/30/25 02:18 POC Glucose 168 mg/dL (70-110) H 05/30/25 11:10 Calculated Osmolality 297 mOsm/kg (285-295) H 05/30/25 02:18 Calcium 8.5 mg/dL (8.5-10.5) 05/30/25 02:18 Total Bilirubin 0.5 mg/dL (0.15-1.2) 05/30/25 02:18 AST 15 U/L (0-40) 05/30/25 02:18 ALT 18 U/L (0-41) 05/30/25 02:18 Alkaline Phosphatase 82 U/L (40-130) 05/30/25 02:18 Total Protein 5.9 g/dL (6.6-8.7) L 05/30/25 02:18 Albumin 2.8 g/dL (3.5-5.2) L 05/30/25 02:18 Globulin 3.1 g/dL (1.3-4.6) 05/30/25 02:18 Lipase 40 U/L (13-60) 05/29/25 15:46 Urine Color Yellow (Yellow) 05/29/25 15:19 Urine Appearance Clear (CLEAR) 05/29/25 15:19 Urine pH 5.0 (5-7) 05/29/25 15:19 Ur Specific [place] 1.024 (1.005-1.030) 05/29/25 15:19 Urine Protein 1+ (Negative) A 05/29/25 15:19 Urine Glucose (UA) Trace (Normal) H 05/29/25 15:19 Urine Ketones Trace (Negative) 05/29/25 15:19 Urine Blood Negative (Negative) 05/29/25 15:19 Urine Nitrate Negative (Negative) 05/29/25 15:19 Urine Bilirubin Negative (Negative) 05/29/25 15:19 Urine Urobilinogen 0.2 mg/dL (Negative) 05/29/25 15:19 Ur Leukocyte Esterase Negative (Negative) 05/29/25 15:19 Urine RBC 0-2 /hpf (0-2) 05/29/25 15:19 Urine WBC 0-5 /hpf (0-5) 05/29/25 15:19 Ur Squamous Epith Cells 0-5 /hpf (0-5) 05/29/25 15:19 Amorphous Sediment Not Reportable 05/29/25 15:19 Urine Bacteria None seen /hpf (NONE) 05/29/25 15:19 Hyaline Casts 4.11 /lpf 05/29/25 15:19 Fluid Color Cancelled 05/29/25 21:03 Fluid Appearance Cancelled 05/29/25 21:03 Fluid Specific Grav 1.032 05/29/25 21:03 Fluid WBC Cancelled 05/29/25 21:03 Fluid RBC Cancelled 05/29/25 21:03 Fluid Tot Cell Count Cancelled 05/29/25 21:03 Fld Polynuclear WBCs # Cancelled 05/29/25 21:03 Fld Polynuclear WBCs % Cancelled 05/29/25 21:03 Fl Mononucl WBCs #(Auto) Cancelled 05/29/25 21:03 Fl Mononuclear % Auto Cancelled 05/29/25 21:03 Fld Crystal Laterality Cancelled 05/29/25 21:03 Fluid Triglycerides 25 mg/dL (0-150) 05/29/25 21:03 Peritoneal Color Yellow (Pale Yellow) 05/29/25 21:03 Peritoneal Appearance Clear (Clear) 05/29/25 21:03 Peritoneal WBC 1194 /uL 05/29/25 21:03 Peritoneal RBC 1 10^3/uL 05/29/25 21:03 Periton Mononu # Auto 1.125 10^3/uL 05/29/25 21:03 Mononuclear WBCs % 94.200 % 05/29/25 21:03 Polynuclear WBCs % 5.800 % 05/29/25 21:03 Perit Polynuc WBCs # 0.069 10^3/uL 05/29/25 21:03 Peritoneal Diff Commnt Yes 05/29/25 21:03 Peritoneal Albumin 2.6 g/dL 05/29/25 21:03 Serum Ketones Negative (Negative) 05/29/25 15:46 Vitals Last Vital Signs Temp 97.9 F 05/30/25 11:30 Pulse 80 05/30/25 11:30 Resp 16 05/30/25 11:30 BP 115/71 05/30/25 11:30 Pulse Ox 96 05/30/25 11:30 O2 Del Method Room Air 05/30/25 11:30 Discharge Plan Discharge Patient Disposition: Home Condition: Stable Prescriptions: Continued dorzolamide-timolol [Cosopt] 22.3-6.8 mg/mL drops 1 drop ophthalmic (eye) BID Januvia 100 mg tablet 100 mg PO DAILY Qty: 90 2RF latanoprost 0.005 % drops 1 drp ophthalmic (eye) BEDTIME ondansetron HCl 4 mg tablet 4 mg PO Q8H PRN (Reason: nausea and vomiting) Qty: 30 0RF glipizide 5 mg tablet 5 mg PO BID No Action metformin 500 mg tablet 500 mg PO QDAY Qty: 90 0RF pantoprazole 40 mg tablet,delayed release (DR/EC) 40 mg PO DAILY Qty: 30 0RF Discharge Order = DC NOW: Discharge Order (Routine); Ordered 05/30/25 Ordered By: Jess Cabrera Other Ambulatory Orders: Complete Blood Count w/Auto (Routine) Timeframe: 3 Days Location: Determined by Patient Ordered By: Jess Cabrera Complete Blood Count w/Auto (Routine) Timeframe: 3 Months Location: Determined by Patient Ordered By: Jess Deborah Comprehensive Metabolic Panel (Routine) Timeframe: 3 Months Location: Determined by Patient Ordered By: Jess Deborah Comprehensive Metabolic Panel (Routine) Timeframe: 3 Days Facility: [facility] - Location: Lab - Main Lab Ordered By: Jess Cabrera Thyroid Stimulating Hormone (Routine) Timeframe: 3 Months Location: Determined by Patient Ordered By: Jesscruzito Cabrera Referrals: Param Goodwin MD [Primary Care Provider, Family Practice] Referral Note: We have notified your physician's clinic of the need for a follow-up appointment to be scheduled. If you have not heard from them within the next 2 business days, please call them directly. Darci Arenas MD [Physician, Cardiology] - 7-10 days Referral Note: We have notified your physician's clinic of the need for a follow-up appointment to be scheduled. If you have not heard from them within the next 2 business days, please call them directly. Sampson Dyson MD [Hospitalist, Oncology] - 1-3 days Referral Note: We have notified your physician's clinic of the need for a follow-up appointment to be scheduled. If you have not heard from them within the next 2 business days, please call them directly. Discharge Diet: Usual diet Discharge Activity: Resume usual activity Patient Instructions: Acute Nausea and Vomiting (DC), Ascites (DC), Opioid Safety, Patient Portal & Jermaine Instructions Discharge Attestations Time Spent in Discharge Care*: less than 30 min Quality Metrics Clinical Quality Measures [ No reported AMI, CVA or VTE this stay] Coding Level of Care Code Acute Code for Chg Fwd Diagnoses Abdominal ascites R18.8 Nausea and vomiting R11.2 Leg edema R60.0 Chronic cough R05.3
[2025-05-30] MEDS: albumin 25 G/100 ML BAG 60 G IV (15:13)
[2025-05-30 17:45] VITALS: BP 115/71; PULSE 80; RESP 16; TEMP 36.6; O2SAT 96
--- NOTE | 2025-05-30 21:05 | USCV_ITS ---
Alex Navas Age: 85 Gender: M : 1940 Exam Date: 05/30/2025 13:46 Ordering Phys: Matthew Segal MD Technologist: Ra Howard [place] [facility] [place]: ascites BP: 115 / 71 HR: 78 Rhythm: Sinus Technical Quality: Adequate MEASUREMENTS (Male / Female) Normal Values 2D ECHO LV Diastolic Diameter PLAX 5.0 cm 4.2 - 5.9 / 3.9 - 5.3 cm IVS Diastolic Thickness 0.9 cm 0.6 - 1.0 / 0.6 - 0.9 cm IVS Systolic Thickness 1.8 cm LVPW Diastolic Thickness 1.4 cm 0.6 - 1.0 / 0.6 - 0.9 cm LVPW Systolic Thickness 2.1 cm LVOT Diameter 2.1 cm LV Ejection Fraction 2D Teich 68.2 % LV Ejection Fraction MOD 4C 68.4 % LV Ejection Fraction MOD 2C 65.7 % LV Ejection Fraction 2C AL 64.6 % LA Diameter 3.5 cm RA Systolic Volume 4C AL 29.8 ml RA Systolic Volume 4C MOD 29.6 ml LA Sys Volume AL 36.3 cm cubed LA Sys Volume Index AL 17.8 cm cubed/m squared Aorta at Sinotubular Diameter 2.6 cm IVC Diameter 1.4 cm M-MODE LA Ao Ratio MM 1.7 AV Cusp Separation MM 2.0 cm DOPPLER AV Peak Velocity 120.0 cm/s LVOT Peak Velocity 98.0 cm/s AV Area Cont Eq vti 2.8 cm squared AV Area Cont Eq pk 2.8 cm squared MV Peak Velocity 84.0 cm/s MV Area PHT 4.5 cm squared Mitral E to A Ratio 0.7 TV Peak Velocity 258.5 cm/s TR Peak Velocity 259.0 cm/s TR Peak Gradient 26.8 mmHg TR Mean Velocity 222.0 cm/s TR Mean Gradient 20.4 mmHg TR Velocity Time Integral 71.0 cm PV Peak Velocity 86.7 cm/s RV Ejection Time 0.3 s FINDINGS Left Ventricle Normal left ventricular size and systolic function, EF 65%. No regional wall motion abnormalities. Grade I/IV diastolic dysfunction (abnormal relaxation filling pattern), normal to mildly elevated filling pressures. Right Ventricle The right ventricle is normal in size and function. Right Atrium The right atrium is normal in size. Left Atrium Mildly increased left atrial size. Mitral Valve Trace mitral valve regurgitation. Aortic Valve No gross abnormalities noted Tricuspid Valve Trace tricuspid valve regurgitation. Pulmonic Valve Pulmonic valve not well visualized. Pericardium Normal pericardium without effusion. Aorta Mildly dilated aortic root measuring 3.67 cm at the level of the isthumus IVC Inferior vena cava not visualized. CONCLUSIONS Normal left ventricular size and systolic function, EF 65%. No regional wall motion abnormalities. Grade I/IV diastolic dysfunction (abnormal relaxation filling pattern), normal to mildly elevated filling pressures. Mildly increased left atrial size. Trace mitral valve regurgitation. Trace tricuspid valve regurgitation. Mildly dilated aortic root measuring 3.67 cm at the level of the isthumus. There is no pericardial effusion. There are no intracardiac masses. No similar previous studies are available for comparison Dr Darci Arenas MD [facility] (Electronically Signed) Final Date: 30 May 2025 16:11 S
[2025-06-04 17:20] LABS: Peritoneal Fld Adenosine Deami 16.3 U/L (<7.6)
[2025-06-04 18:25] LABS: RMSF IGG NOT DETECTED; RMSF IGM NOT DETECTED
[2025-06-05 21:25] LABS: Amylase, Peritoneal Fluid 29 U/L
[2025-06-06 22:04] LABS: Interpretation PAST INFECTION
== END 2025-05-30 17:30 | disposition home or self-care (01) ==
LOC: ER 20:49 → MEDSURG 21:26
PROVIDERS: Family Medicine; Admitting Provider Internal Medicine; Emergency Provider Student in an Organized Health Care Education/Training Program; PCP Family Medicine; Visit Provider Internal Medicine
DX: R18.8 Other ascites (principal); R11.2 Nausea with vomiting, unspecified; R05.3 Chronic cough; K21.9 Gastro-esophageal reflux disease without esophagitis; Z79.84 Long term (current) use of oral hypoglycemic drugs; Z85.46 Personal history of malignant neoplasm of prostate; Z85.828 Personal history of other malignant neoplasm of skin; E11.22 Type 2 diabetes mellitus with diabetic chronic kidney disease; I12.9 Hypertensive chronic kidney disease with stage 1 through stage 4 chronic kidney disease, or unspecified chronic kidney disease; N18.9 Chronic kidney disease, unspecified
CPT/HCPCS: 36415; 36416; 71045; 71275; 74177; 80053; 80503; 81001; 82009; 82042; 82150; 82803; 82962; 83690; 84311; 84315; 84478; 85025; 85610; 85730; 86618; 86666; 86757; 87015; 87070; 87075; 87116; 87205; 87206; 87801; 88112; 88305; 89050; 93306; 93971; 96372; 96374; 99285; G0378; J1650; J1815; J2405; J7030; J9999; P9046

== ENCOUNTER 2025-06-03 10:58 | Oncology outpatient (recurring) (ONCR) | payer MEDICARE, SELFPAY ==
[2025-05-20 17:06] LABS: Hematocrit 39.3 % (37-53); Hemoglobin 13.00 g/dL (11.27-16.99); Mean Corpuscular HGB Conc 33.1 g/dL (30-55); Mean Corpuscular Hemoglobin 30.2 pg (27-33); Mean Corpuscular Volume 91.4 fl (82-101); Nucleated Red Blood Cells % 0 %; Platelet Count 210 10^3/cmm (157-399); Red Blood Count 4.30 10^6/uL (3.85-5.65); White Blood Count 4.48 10^3/uL (3.29-11.43)
[2025-05-20 17:22] LABS: Alanine Aminotransferase 84 U/L (0-41); Albumin Level 3.4 g/dL (3.5-5.2); Alkaline Phosphatase 129 U/L (40-130); Anion Gap 17.9 (5-19); Aspartate Amino Transferase 41 U/L (0-40); Blood Urea Nitrogen 30 mg/dL (8-23); Calcium 8.6 mg/dL (8.5-10.5); Carbon Dioxide 19 mmol/L (22-29); Chloride 107 mmol/L (98-107); Creatinine Clr Calc Pharmacy 43.0054; Globulin 3.4 g/dL (1.3-4.6); Glucose 153 mg/dL (65-115); Osmolality Calculated 297 mOsm/kg (285-295); Potassium 4.9 mmol/L (3.5-5.1); Sodium 139 mmol/L (136-145); Total Protein 6.8 g/dL (6.6-8.7)
[2025-05-22 06:50] LABS: PROTEIN, TOTAL 6.3 g/dL (6.1-8.1)
[2025-05-25 20:34] LABS: ALPHA 1 GLOBULIN 0.4 g/dL (0.2-0.3); ALPHA 2 GLOBULIN 0.8 g/dL (0.5-0.9); BETA 1 GLOBULIN 0.4 g/dL (0.4-0.6); BETA 2 GLOBULIN 0.4 g/dL (0.2-0.5)
[2025-05-26 10:14] LABS: Protein/Creatinine Ratio 0.261 (<0.100); Protein/Creatinine Ratio 261 mg/g creat (<100)
--- NOTE | 2025-05-28 14:45 | US_ITS ---
WS: [id number] ABDOMINAL ULTRASOUND REASON FOR EXAM: chronic kidney disease TECHNIQUE: Grayscale and Doppler ultrasound examination of the abdomen. FINDINGS: Pancreas: No mass, ductal dilatation or calcification. Abdominal aorta and IVC: Normal Liver: Liver measures 18.6 cm in length. The liver appears moderately echogenic without focal lesion. Normal portal venous blood flow. Gallbladder: Gallbladder wall thickness measures 0.3 cm. Probable gallbladder calculi. Unable to get patient in decubitus position (patient condition) to confirm. No bile duct dilatation. Left kidney: Left kidney measures 9.6 cm x 4.8 cm x 5.2 cm. Left kidney cortex measures 1.0 cm. No mass, calculus, or hydronephrosis. 2.5 cm renal cyst. Renal cortex slightly thinned and moderately echogenic with irregular margins. Right kidney: Right kidney measures 9.8 cm x 5.2 cm x 4.9 cm. Right kidney cortex measures 1.0 cm. No mass, calculus, or hydronephrosis. Renal cortex slightly thinned and moderately echogenic with irregular margins. Spleen: Spleen measures 12.1 cm x 4.0 cm x 12.0 cm. No focal lesion. Significant ascites. US/US abdomen complete* [id number] IMPRESSION: Significant ascites. Mild hepatosplenomegaly. Renal ultrasound characteristics suggestive of renal parenchymal disease.
[2025-05-28 14:51] LABS: ALPHA-1-GLOBULINS 13 %; ALPHA-2-GLOBULINS 23 %; BETA GLOBULINS 22 %; GAMMA GLOBULINS 27 %
[2025-06-03 13:12] LABS: Cancer Antigen 19 9 134.2 U/mL (0-35)
[2025-06-03 13:22] LABS: Tumor Marker Alpha Fetoprotein 4.9 ng/mL (0-8.3)
[2025-06-04 05:20] LABS: PROTEIN, TOTAL 5.9 g/dL (6.1-8.1)
[2025-06-04 20:11] LABS: ALPHA 1 GLOBULIN 0.4 g/dL (0.2-0.3); ALPHA 2 GLOBULIN 0.8 g/dL (0.5-0.9); BETA 1 GLOBULIN 0.3 g/dL (0.4-0.6); BETA 2 GLOBULIN 0.4 g/dL (0.2-0.5)
[2025-06-05 11:39] LABS: KAPPA LIGHT CHAIN, FREE, SERUM 50.6 mg/L (3.3-19.4); KAPPA/LAMBDA LIGHT CHAINS FREE 2.05 (0.26-1.65); LAMBDA LIGHT CHAIN, FREE, SERU 24.7 mg/L (5.7-26.3)
== END 2025-06-11 23:59 | disposition home or self-care (01) ==
PROVIDERS: PCP Family Medicine; Visit Provider Internal Medicine
DX: C44.212 Basal cell carcinoma of skin of right ear and external auricular canal (principal); R97.8 Other abnormal tumor markers; N18.9 Chronic kidney disease, unspecified; D70.9 Neutropenia, unspecified; Z85.46 Personal history of malignant neoplasm of prostate; R18.8 Other ascites; Z79.899 Other long term (current) drug therapy
CPT/HCPCS: 36415; 76700; 80053; 82105; 82784; 83615; 83883; 84155; 84156; 84165; 84166; 85025; 86301; 86334; 86335; 99204; 99213

== ENCOUNTER → 2025-06-23 10:38 | Outpatient (BNVA) | payer MEDICARE, SELFPAY | PROVIDERS: PCP Family Medicine; Visit Provider Family Medicine | DX: Z98.890 Other specified postprocedural states (principal); C80.1 Malignant (primary) neoplasm, unspecified; Z85.46 Personal history of malignant neoplasm of prostate; R74.8 Abnormal levels of other serum enzymes | CPT/HCPCS: 80053; 82378; 85025; 86301; G0103 ==

== ENCOUNTER 2025-07-06 13:00 | Outpatient (CLI) | payer MEDICARE, SELFPAY | END 2025-07-06 13:01 | disposition home or self-care (01) | LOC: LAB 07-08 08:27 | PROVIDERS: PCP Family Medicine; Visit Provider Family Medicine | DX: C44.212 Basal cell carcinoma of skin of right ear and external auricular canal (principal) | CPT/HCPCS: 80053 ==